=== PATIENT | female | born 1975 | race Caucasian/White ===

== ENCOUNTER 2021-07-17 13:31 | Emergency (ER) | payer MEDICAID, SELFPAY ==
--- NOTE | ~2021-07-17 | CT_ITS ---
EXAMINATION: CT abdomen pelvis w con DATE: 07/17/2021 15:00 INDICATION: Abdominal pain TECHNIQUE: Computed tomography (CT) of the abdomen and pelvis was performed with 100 mL Omnipaque-350 intravenous contrast. Automated exposure control and iterative reconstruction technique were employe d. The dose-length product was 229.58 mGy-cm. COMPARISON: None FINDINGS: Lung bases are clear. A couple small fat-containing Bochdalek hernias at the right posterior sulcus. Visualized inferior heart is normal. No pericardial or pleural effusion. Bilateral breast implants li buddy, gallbladder, spleen, pancreas, bilateral adrenal glands and kidneys are normal. A couple heterog eneously enhancing fibroids, the larger measuring 2.6 similar at the posterior uterine fundus. Bladde r is normal. Bowels including the appendix are normal. No pathologically enlarged abdominal or pelvic lymphadenopathy. Mild lower lumbar levocurvature with mild right-sided disc height loss at L4-L5. IMPRESSION: 1. No acute intra-abdominal/pelvic process. 2. Fibroid uterus. Reviewed, dictated and finalized at location A.
[2021-07-17 13:36] VITALS: BP 158/107; PULSE 100; RESP 15; TEMP 36.7; O2SAT 100
[2021-07-17 14:30] VITALS: BP 177/115; PULSE 93; RESP 14; O2SAT 99
[2021-07-17] MEDS: KETOROLAC 30 MG/ML VIAL (*BKC) IV PUSH (14:36)
[2021-07-17] MEDS: ONDANSETRON INJ 4 MG/2 ML VIAL IV PUSH (14:37)
[2021-07-17] MEDS: SODIUM CHLORIDE 0.9% IV 1,000 ML 999 ML IV CONT (14:37)
[2021-07-17 14:38] LABS: Basophils Absolute Auto 0.1 K/mm3 (0.0-0.1); Basophils Percent Auto 0.5 % (0.2-1.2); Eosinophils Absolute Auto 0.1 K/mm3 (0-0.3); Eosinophils Percent Auto 0.8 % (0-4.4); Hematocrit 39.6 % (37.0-47.0); Hemoglobin 13.1 g/dL (12.0-15.0); Immature Granulocyte Absolute 0.03 K/mm3 (0.00-0.031); Immature Granulocyte Percent A 0.3 % (0-0.5); Lymphocytes Absolute Auto 2.22 K/mm3 (0.9-3.2); Mean Corpuscular HGB Conc 33.1 g/dl (32-36); Mean Corpuscular Hemoglobin 31.5 pg (26-34); Mean Corpuscular Volume 95.2 fl (80-100); Monocytes Absolute Auto 0.7 K/mm3 (0.1-0.6); Monocytes Percent Auto 6.4 % (2.6-8.5); Neutrophils Absolute Auto 7.1 K/mm3 (1.3-6.7); Platelet Count Result 257 k/mm3 (150-375); Red Blood Count 4.16 M/mm3 (4.2-5.4); Red Cell Distribution Width 13.6 % (11.5-14.5); White Blood Count 10.1 K/mm3 (4.5-10.0)
[2021-07-17 14:41] LABS: Add Urine Microscopic? NO; Appearance Urine Clear (Clear); Bilirubin Urine Negative (Negative); Blood Urine Negative (Negative); Color Urine Colorless (Yellow); Glucose Urine UA Negative (Negative); Ketones Urine Negative (Negative); Leukocyte Esterase Ur Negative LEU/UL (Negative); Nitrate Urine Negative (Negative); Protein Urine Negative (Negative); Urobilinogen Urine Negative mg/dL (<2.0)
--- NOTE | 2021-07-17 14:42 | ED.ABDPAIN ---
HPI - Abdominal Pain General Chief Complaint: Abdominal Pain Stated Complaint: ABD Pain Time Seen by Provider: 07/17/21 13:44 Source: RN notes reviewed History of Present Illness HPI narrative: Patient presents emergency department from home for abdominal pain. States symptoms began approximately 1 month ago but have worsened over the past several days. Patient states that pain is located in the upper abdomen described as burning she states is associated with nausea and vomiting is worse after eating she denies any fevers or chills chest pain, shortness of breath diarrhea or any other symptoms states she is been taking Pepcid for the symptoms with minimal relief Related Data Allergies Allergy/AdvReac Type Severity Reaction Status Date / Time No Known Allergies Allergy Verified 07/17/21 13:39 Review of Systems Review of Systems: Gen.: Denies fevers or chills ENT: Denies congestion Respiratory: Denies shortness of breath or cough CV: Denies chest pain or palpitations GI: See HPI denies burning, urgency, frequency or hematuria Musculoskeletal: Denies back pain or muscle pain Neuro: Denies numbness, tingling, weakness or focal weakness Skin: Denies rash Except as documented, all other systems reviewed and negative [facility] Past Medical History Medical History (Updated 07/17/21 @ 16:30 by Ismael Burgos DO) Patient denies significant medical history Social History Social History (Updated 07/17/21 @ 14:43 by Ismael Burgos DO) Tobacco type: e-cigarettes/vaping Exam Narrative: APPEARANCE: No acute distress, nontoxic, resting in bed HEENT: Normocephalic, atraumatic, OMM RESPIRATORY: No respiratory distress, clear to auscultation bilaterally with no rhonchi wheezing or rales CARDIOVASCULAR: RRR s murmur ABDOMINAL: Soft nondistended tender palpation right upper quadrant and left upper quadrant no tenderness right lower quadrant left lower quadrant no rebound or guarding MUSCULOSKELETAl: Moves all extremities. No clubbing, cyanosis or edema. NEURO: Awake and alert. Following commands, speech normal, no focal deficits SKIN:: Warm, dry. Normal Color PSYCHIATRIC: Normal affect/mood Course Course Emergency Course: Went to reevaluate the patient states her abdomen is feeling better at this time she is telling me about how she has had over the past year issues with recurrent scalp infections that she believes are parasitic she states she is seeing several PCPs and been referred to several specialist and is waiting to see dermatology did discuss with her the need to follow-up with dermatology as an outpatient Patient states that they are feeling much better at this time. States abdominal pain has resolved. Repeat abdominal exam shows the patient's abdomen to be soft and nontender. Discussed with patient results of workup and diagnosis. Discussed need for follow-up with primary care physician, reasons to return to the emergency department in proper use of medication. Patient understands and agrees to current treatment plan discussed with patient plans for referral for GI Vital Signs Vital signs: Vital Signs Temperature 98.1 F 07/17/21 13:36 Pulse Rate 100 07/17/21 13:36 Respiratory Rate 15 07/17/21 13:36 Blood Pressure 158/107 H 07/17/21 13:36 Pulse Oximetry 100 07/17/21 13:36 Temperature 98.1 F 07/17/21 13:36 Pulse Rate 100 07/17/21 13:36 Respiratory Rate 15 07/17/21 13:36 Blood Pressure 158/107 H 07/17/21 13:36 Pulse Oximetry 100 07/17/21 13:36 MDM - Abdominal Pain MDM Narrative Medical decision making narrative: Patient's abdomen is soft without significant pain or signs of surgical abdomen on serial exams. Lab and x-ray evaluations are reviewed and patient is felt to be a reasonable candidate for outpatient management. Patient was instructed as to limitations of x-ray and laboratory evaluation and encouraged to return to ED or primary physician for repeat exam in 12 hours if continued o
[2021-07-17 14:50] LABS: Alanine Aminotransferase 43 U/L (4-35); Albumin Level 4.3 g/dL (3.5-5.1); Alkaline Phosphatase 45 U/L (38-126); Anion Gap 5 mmol/L (8-16); Aspartate Amino Transferase 45 U/L (14-36); Bilirubin,Total 0.4 mg/dL (0.2-1.3); Blood Urea Nitrogen 13 mg/dL (7-17); Carbon Dioxide 27 mmol/L (22-30); Chloride 103 mmol/L (98-107); Estimated CRCL calculation 71 ml/min; Estimated Glomerular Filt Rate > 60; Glucose 97 mg/dL (65-110); Lipase 44 U/L (23-300); Potassium 3.4 mmol/L (3.4-5.0); Sodium 135 mmol/L (137-145)
[2021-07-17 14:58] LABS: Specific Grav Ur 1.004 (1.001-1.035)
[2021-07-17 15:30] VITALS: BP 150/111; PULSE 96; RESP 14; O2SAT 99
[2021-07-17 16:30] VITALS: BP 175/122; PULSE 100; RESP 14; O2SAT 99
== END 2021-07-17 16:40 | disposition home or self-care (01) ==
PROVIDERS: Emergency Provider Emergency Medicine
DX: R10.13 Epigastric pain (principal); R11.2 Nausea with vomiting, unspecified; F17.290 Nicotine dependence, other tobacco product, uncomplicated; D25.9 Leiomyoma of uterus, unspecified
CPT/HCPCS: 36415; 74177; 80053; 81003; 81025; 83690; 85025; 96361; 96374; 96375; 99284; J1885; J2405; J7030; Q9967

== ENCOUNTER 2022-07-29 18:50 | Emergency (ER) | payer MEDICAID, SELFPAY ==
[2022-07-29 19:08] VITALS: BP 162/114; PULSE 95; RESP 16; TEMP 36.9; O2SAT 100
--- NOTE | 2022-07-29 22:17 | PC.NURSE ---
Call x 1 at this time for triage with no response from waiting room.
== END 2022-07-29 22:17 | disposition left against medical advice (07) ==
LOC: ANHED 22:50
DX: R11.2 Nausea with vomiting, unspecified (principal)
CPT/HCPCS: 99199

== ENCOUNTER 2023-10-31 17:03 | Emergency (ER) | payer MEDICARE, SELFPAY ==
--- NOTE | ~2023-10-31 | CT_ITS ---
CT of the Abdomen and Pelvis: Indication: Abdominal pain Technique: 2.5 mm axial scans were obtained through the abdomen and pelvis following intravenous adm inistration of 100 cc of Omnipaque 350. Dose reduction technique was used on this scan by utilizing a utomated exposure control and iterative reconstruction technique. The dose-length product (DLP) was 4 11.41 mGy-cm. COMPARISON: 07/17/2021 Findings: Scans through the lung bases are unremarkable. The liver, spleen, pancreas, gallbladder, adrenals and kidneys are within normal limits. No evidence of aortic aneurysm. No lymphadenopathy. No bowel obstruction or bowel wall thickening. There is no evidence to suggest acute appendicitis. Images through the pelvis were performed. Urinary bladder unremarkable. No pelvic mass seen. No ascit es. Impression: No significant abnormalities seen. Reviewed, dictated and finalized at [facility]. AND OILS LOADER Impression: No significant abnormalities seen.
--- NOTE | ~2023-10-31 | CT_ITS ---
Non-contrast Head CT History: Headache Technique: Axial non-contrast imaging of the brain was performed. Dose reduction technique was used on this scan by utilizing automated exposure control and iterative reconstruction technique. The dose -length product (DLP) was 529.67 mGy-cm. Findings: There is no evidence of intracranial hemorrhage, mass lesion, or acute infarct. Brain par enchyma appears normal. The ventricles and subarachnoid spaces are normal in size. The calvarium ap pears normal. The visualized paranasal sinuses and mastoid air cells are clear. Impression: No significant abnormality seen. Reviewed, dictated and finalized at location . NING OFFICER Impression: No significant abnormality seen.
[2023-10-31 17:34] VITALS: BP 92/77; PULSE 62; RESP 20; TEMP 36.2; O2SAT 100
--- NOTE | 2023-10-31 17:38 | ECG_ITS ---
Measurements Intervals [place] Rate: 55 P: 44 CA: 153 QRS: 15 QRSD: 109 T: 20 QT: 422 QTc: 404 Interpretive Statements SINUS BRADYCARDIA WITH SINUS ARRHYTHMIA NO PREVIOUS ECG AVAILABLE FOR COMPARISON Electronically Signed On 11-01-2023 13:22:39 [employer] by Nghia Munoz M.D.
[2023-10-31 17:51] LABS: Basophils Absolute Auto 0.1 K/mm3 (0.0-0.1); Basophils Percent Auto 0.7 % (0.2-1.2); Eosinophils Absolute Auto 0.1 K/mm3 (0-0.3); Eosinophils Percent Auto 1.2 % (0-4.4); Hematocrit 44.6 % (37.0-47.0); Hemoglobin 14.1 g/dL (12.0-15.0); Immature Granulocyte Absolute 0.01 K/mm3 (0.00-0.031); Immature Granulocyte Percent A 0.1 % (0-0.5); Lymphocytes Absolute Auto 2.46 K/mm3 (0.9-3.2); Mean Corpuscular HGB Conc 31.6 g/dl (32-36); Mean Corpuscular Hemoglobin 30.4 pg (26-34); Mean Corpuscular Volume 96.1 fl (80-100); Mean Platelet Volume 9.4 fl (7.4-10.4); Monocytes Absolute Auto 0.6 K/mm3 (0.1-0.6); Monocytes Percent Auto 7.9 % (2.6-8.5); Neutrophils Absolute Auto 4.5 K/mm3 (1.3-6.7); Neutrophils Percent Auto 58.1 % (45.5-73.1); Platelet Count Result 426 k/mm3 (150-375); Red Blood Count 4.64 M/mm3 (4.2-5.4); Red Cell Distribution Width 17.6 % (11.5-14.5); White Blood Count 7.7 K/mm3 (4.5-10.0)
[2023-10-31 18:11] LABS: Alanine Aminotransferase 30 U/L (6-35); Albumin Level 4.5 g/dL (3.5-5.1); Alkaline Phosphatase 91 U/L (38-126); Anion Gap 7 mmol/L (8-16); Aspartate Amino Transferase 40 U/L (14-36); Bilirubin,Total 0.4 mg/dL (0.2-1.3); Blood Urea Nitrogen 10 mg/dL (7-17); Calcium 9.2 mg/dL (8.4-10.2); Carbon Dioxide 27 mmol/L (22-30); Chloride 104 mmol/L (98-107); Estimated CRCL calculation 87 ml/min; Estimated Glomerular Filt Rate > 60; Glucose 109 mg/dL (65-110); Sodium 138 mmol/L (137-145)
[2023-10-31 18:15] LABS: Potassium 4.1 mmol/L (3.4-5.0)
[2023-10-31 19:44] VITALS: BP 128/88; PULSE 60; RESP 18; O2SAT 100
[2023-11-01 00:18] VITALS: PULSE 52; RESP 12; O2SAT 99
[2023-11-01 00:35] VITALS: BP 160/97; PULSE 46; RESP 16; O2SAT 100
[2023-11-01 00:39] VITALS: PULSE 53
[2023-11-01 01:13] LABS: Basophils Percent Auto 0.6 % (0.2-1.2); Eosinophils Absolute Auto 0.1 K/mm3 (0-0.3); Eosinophils Percent Auto 1.8 % (0-4.4); Hematocrit 39.3 % (37.0-47.0); Hemoglobin 12.3 g/dL (12.0-15.0); Immature Granulocyte Absolute 0.02 K/mm3 (0.00-0.031); Immature Granulocyte Percent A 0.3 % (0-0.5); Lymphocytes Absolute Auto 2.37 K/mm3 (0.9-3.2); Lymphocytes Percent Auto 36.3 % (18.3-44.2); Mean Corpuscular HGB Conc 31.3 g/dl (32-36); Mean Corpuscular Hemoglobin 30.1 pg (26-34); Mean Corpuscular Volume 96.1 fl (80-100); Mean Platelet Volume 9.4 fl (7.4-10.4); Monocytes Absolute Auto 0.7 K/mm3 (0.1-0.6); Monocytes Percent Auto 10.1 % (2.6-8.5); Neutrophils Absolute Auto 3.3 K/mm3 (1.3-6.7); Neutrophils Percent Auto 50.9 % (45.5-73.1); Platelet Count Result 387 k/mm3 (150-375); Red Blood Count 4.09 M/mm3 (4.2-5.4); Red Cell Distribution Width 17.3 % (11.5-14.5); White Blood Count 6.5 K/mm3 (4.5-10.0)
[2023-11-01 01:21] LABS: Lactic Acid Reflex 0.9 mmol/L (0.7-2.0)
[2023-11-01 01:22] LABS: Alanine Aminotransferase 27 U/L (6-35); Albumin Level 4.1 g/dL (3.5-5.1); Alkaline Phosphatase 83 U/L (38-126); Anion Gap 4 mmol/L (8-16); Aspartate Amino Transferase 38 U/L (14-36); Bilirubin,Total 0.4 mg/dL (0.2-1.3); Blood Urea Nitrogen 8 mg/dL (7-17); Calcium 9.1 mg/dL (8.4-10.2); Carbon Dioxide 29 mmol/L (22-30); Chloride 103 mmol/L (98-107); Estimated CRCL calculation 87 ml/min; Estimated Glomerular Filt Rate > 60; Glucose 95 mg/dL (65-110); Lipase 49 U/L (23-300); Magnesium 2.2 mg/dL (1.6-2.3); Potassium 4.3 mmol/L (3.4-5.0); Sodium 136 mmol/L (137-145)
[2023-11-01 01:23] LABS: Appearance Urine Cloudy (Clear); Bacteria Urine None Seen /hpf; Bilirubin Urine Negative (Negative); Blood Urine Negative (Negative); Color Urine Yellow (Yellow); Glucose Urine UA Negative (Negative); Ketones Urine Negative (Negative); Leukocyte Esterase Ur Negative LEU/UL (Negative); Nitrate Urine Negative (Negative); Non Pathogenic Casts 0-2; Protein Urine Negative (Negative); RBC Urine 0-2 /hpf (0-2); Specific Grav Ur 1.017 (1.001-1.035); Squamous Epithelial Cell Urine None seen /hpf (Few); Urobilinogen Urine 0.2 mg/dL (<2.0); WBC Urine 0-5 /hpf; pH Urine 8.5 (5.0-9.0)
[2023-11-01 01:44] VITALS: PULSE 54; RESP 12; O2SAT 100
[2023-11-01 01:44] LABS: Add Urine Microscopic? YES
--- NOTE | 2023-11-01 02:03 | ED.GENADULT ---
HPI - General Adult General Chief complaint: Syncope Stated complaint: multiple complaints Time Seen by Provider: 11/01/23 00:31 History of Present Illness HPI narrative: patient is a 48-year-old female who presents emergency department with chief complaint of multiple complaints. Patient reports that she has had multiple scaly lesions on her scalp and also over her body patient also reports he has been vomiting stuff and reports that she has been seen by Dermatology that recommended that she be seen by another service and reports that she is currently in between providers. The patient states that she has draining wounds from her scalp and reports that they are not improved by anything. Related Data Allergies Allergy/AdvReac Type Severity Reaction Status Date / Time No Known Allergies Allergy Verified 07/29/22 19:14 Review of Systems Review of Systems: A 10 system review of systems was completed on the patient and is negative except for what is stated in the HPI. Nursing and ancillary documentation was reviewed. PMFSH Past Medical History Medical History Patient denies significant medical history Social History Social History Tobacco type: e-cigarettes/vaping Exam Narrative: GENERAL: Well-appearing, well-nourished, and in no acute distress. HEAD: Normocephalic, atraumatic. EYES: PERRLA and EOMI. ENT: Nares clear, no rhinorrhea or epistaxis. Mucous membranes moist. NECK: Supple. CHEST: Clear to auscultation. No respiratory distress. HEART: Regular rate and rhythm. No murmur heard. Normal peripheral pulses. ABDOMEN: Soft, nontender, nondistended, normal active bowel sounds. EXTREMITIES: Normal range of motion. No edema. SKIN: Warm, dry, Multiple lesions over the skin NEURO: No focal deficits. Alert and oriented x3. PSYCH: Normal mood and affect. Course Vital Signs Vital signs: Vital Signs Temperature 36.2 C L 10/31/23 17:34 Pulse Rate 62 10/31/23 17:34 Respiratory Rate 20 10/31/23 17:34 Blood Pressure 92/77 L 10/31/23 17:34 Pulse Oximetry 100 10/31/23 17:34 Oxygen Delivery Room Air 10/31/23 17:34 Temperature 36.2 C L 10/31/23 17:34 Pulse Rate 54 L 11/01/23 01:44 Respiratory Rate 12 11/01/23 01:44 Blood Pressure 160/97 H 11/01/23 00:35 Pulse Oximetry 100 11/01/23 01:44 Oxygen Delivery Room Air 10/31/23 17:34 Medical Decision Making Vital Signs Vital Signs: Vital Signs Temperature 36.2 C L 10/31/23 17:34 Pulse Rate 62 10/31/23 17:34 Respiratory Rate 20 10/31/23 17:34 Blood Pressure 92/77 L 10/31/23 17:34 Pulse Oximetry 100 10/31/23 17:34 Oxygen Delivery Room Air 10/31/23 17:34 Temperature 36.2 C L 10/31/23 17:34 Pulse Rate 54 L 11/01/23 01:44 Respiratory Rate 12 11/01/23 01:44 Blood Pressure 160/97 H 11/01/23 00:35 Pulse Oximetry 100 11/01/23 01:44 Oxygen Delivery Room Air 10/31/23 17:34 Lab Data 11/01/23 01:06 11/01/23 01:06 Labs: Lab Results 10/31/23 11/01/23 11/01/23 Range/Units 17:46 01:06 01:12 WBC 7.7 6.5 (4.5-10.0) K/mm3 RBC 4.64 4.09 L (4.2-5.4) M/mm3 Hgb 14.1 12.3 (12.0-15.0) g/dL Hct 44.6 39.3 (37.0-47.0) % MCV 96.1 96.1 (80-100) fl MCH 30.4 30.1 (26-34) pg MCHC 31.6 L 31.3 L (32-36) g/dl RDW 17.6 H 17.3 H (11.5-14.5) % Plt Count 426 H D 387 H (150-375) k/mm3 MPV 9.4 9.4 (7.4-10.4) fl Immature Gran % (Auto) 0.1 0.3 (0-0.5) % Neut % (Auto) 58.1 50.9 (45.5-73.1) % Lymph % (Auto) 32.0 36.3 (18.3-44.2) % [place] % (Auto) 7.9 10.1 H (2.6-8.5) % Eos % (Auto) 1.2 1.8 (0-4.4) % Baso % (Auto) 0.7 0.6 (0.2-1.2) % Lymph # (Auto) 2.46 2.37 (0.9-3.2) K/mm3 [place] # (Auto) 0.6 0.7 H (0.1-0.6) K/mm3 Eos # (Auto) 0.1 0.1 (0-0.3) K/mm3 Baso # (A
[2023-11-01 02:26] LABS: Amphetamine Screen Urine Negative (Negative); Barbiturate Screen Urine Positive (Negative); Benzodiazepines Screen Urine Positive (Negative); Cannabinoid Screen Urine Positive (Negative); Cocaine Screen Urine Negative (Negative); Methadone Screen Urine Negative (Negative); Opiate Screen Urine Negative (Negative); Phencyclidine Screen Urine Negative (Negative)
[2023-11-01 03:24] VITALS: BP 134/82; PULSE 54; RESP 16; O2SAT 99
== END 2023-11-01 03:33 | disposition home or self-care (01) ==
PROVIDERS: Emergency Medicine; Emergency Provider Emergency Medicine
DX: L30.9 Dermatitis, unspecified (principal); R11.2 Nausea with vomiting, unspecified; Z79.899 Other long term (current) drug therapy
CPT/HCPCS: 36415; 70450; 74177; 80053; 80307; 81001; 83605; 83690; 83735; 85025; 93005; 99284; Q9967

== ENCOUNTER 2025-03-26 15:41 | Emergency (ER) | payer MEDICARE, SELFPAY ==
--- NOTE | ~2025-03-26 | CT_ITS ---
EXAMINATION: CT brain wo con DATE: 03/26/2025 19:10 INDICATION: headache, worsening . TECHNIQUE: Computed tomography (CT) of the head was performed without intravenous contrast. The mA wa s adjusted according to patient size. Iterative reconstruction technique was employed. The dose-lengt h product was 605.33 mGy-cm. COMPARISON: 11/01/2023. FINDINGS: Motion artifact is present, particularly at the level of the skull base. No acute intracranial hemorrhage or extra-axial fluid collection. No hydrocephalus, mass, or herniation. No acute ischemic infarct. Unremarkable dural venous sinus attenuation. No acute osseous abnormality. The aerated spaces are clear. IMPRESSION: Mildly motion limited examination. Within that constraint, no acute intracranial process is detected. Reviewed, dictated and finalized at location K. IMPRESSION: Mildly motion limited examination. Within that constraint, no acute intracrania l process is detected.
--- NOTE | ~2025-03-26 | XR_ITS ---
EXAMINATION: XR chest 1V portable Exam Date/Time: 03/26/2025 17:27 CDT HISTORY: pre-syncope, gi symptoms, parasite symptoms Comparison: None. RESULT: Lines, tubes, and devices: Bilateral breast implants. Mediastinum. Lungs and pleura: Clear. Slight rightward rotation. Cardiomediastinal silhouette: Unremarkable. Other: No acute osseous or upper abdominal finding. IMPRESSION: No acute cardiopulmonary process. Reviewed, dictated and finalized at location K.
[2025-03-26 15:46] VITALS: BP 199/109; PULSE 96; RESP 18; TEMP 36.2; O2SAT 100
--- OUTSIDE RECORDS SUMMARY | 2025-03-26 15:48 | XMS_ITS | Referral Summary ---
Author Organization [address] Address [address] [place] [id number] Care Team Providers Care Mine Expert Name Role Phone Claudia Graham DO Primary Care Provider [phone] Allergies Active Allergy Reactions Criticality Noted Date Comments House Dust Sneezing Low 03/07/2023 Mold Extracts Unknown 03/07/2023 Medications lisinopriL (PRINIVIL,ZESTRIL) 10 mg tabletIndications: hypertension Take 1 tablet (10 mg total) by mouth cap inspector before breakfast 01/15/20 18 Active Lo Loestrin Fe 1 mg-10 mcg (24)/10 mcg (2) tabletIndications: Contraception Take 1 tablet by mouth cap inspector before breakfast 10/31/20 20 Active omeprazole (PriLOSEC) 40 mg capsuleIndications :Treatment of Non-Bleeding Gastric Disorder Take 1 capsule (40 mg total) by mouth cap inspector before breakfast 08/21/20 21 Active metroNIDAZOLE (METROCREAM) 0.75 % creamIndications:A cne Rosacea Apply to face once daily 45 g 11 12/14/19 22 Active valACYclovir (VALTREX) 500 mg tabletIndications: HSV infection Take 1 tablet (500 mg total) by mouth daily 30 tablet 2 12/14/19 22 Active Additional Information Patient taking differently:500 mg oralDaily (early AM), Indications: Prophylaxis, Medical, Informant: Self, Reported on 03/07/2023 famotidine (PEPCID) 20 mg tablet Take 1 tablet (20 mg total) by mouth 2 (two) times a day as needed for heartburn or indigestion 12/25/19 Active erythromycin with ethanoL (EMGEL) 2 % gel Apply topically 2 (two) times a day as needed (for acne and sores) 30 g 2 02/02/20 22 Active gabapentin (NEURONTIN) 300 mg capsuleIndications :Dysesthesia of scalp Take 3 capsules (900 mg total) by mouth 3 (three) times a day 270 capsule 2 02/02/20 22 Active Additional Information Patient taking differently:900 mg oral 3 times daily,Indications: Neuropathic Pain, Reported on 03/07/2023 ivermectin 1 % cream APPLY TO AFFECTED AREA ON SCALP ONCE DAILY 06/04/20 22 Active amphetamine sulfate 20 mg tablet,disintegrat ingIndications:Att ention-Deficit Hyperactivity Disorder Take 20 mg by mouth 3 (three) times a day Active metoprolol XL (TOPROL-XL) 25 mg extended release tablet Take 1 tablet (25 mg total) by mouth daily 08/25/20 22 Active butalbital-acetami nophen-caffeine (ESGIC) 50-325-40 mg per tabletIndications: Migraine Take 1 tablet by mouth every 4 (four) hours as needed for migraine or headaches 08/04/20 22 Active escitalopram (LEXAPRO) 10 mg tabletIndications: Anxiety with Depression Take 1 tablet (10 mg total) by mouth nightly 08/20/20 Active mupirocin (BACTROBAN) 2 % ointment APPLY TOPICALLY TO THE AFFECTED AREA DAILY 30 g 6 10/08/20 22 Active hydrOXYzine (ATARAX) 25 mg tabletIndications: Dysesthesia of scalp Take 1 tablet (25 mg total) by mouth 3 (three) times a day 90 tablet 2 10/06/20 Active Additional Information Patient taking differently:25 mg oral 3 times daily,Indications: Urticaria, anxiety, Informant: Self, Reported on 03/07/2023 ketoconazole (NIZORAL) 2 % shampoo Apply topically daily To wash scalp and ears, then rinse 120 mL 11 02/10/20 23 Active buprenorphine-nalo xone (SUBOXONE) 8-[address] under the tongue 2 (two) times a day 01/20/20 23 Active clobetasoL (CLOBEX) 0.05 % shampoo Apply topically 2 (two) times a week 12/27/19 Active acetaminophen (TYLENOL) 500 mg tablet Take 1 tablet (500 mg total) by mouth every 6 (six) hours as needed for pain 30 tablet 03/17/20 23 Active ibuprofen (ADVIL,MOTRIN) 600 mg tablet Take 1 tablet (600 mg total) by mouth every 6 (six) hours as needed for pain 30 tablet 03/17/20 23 Active cyclobenzaprine (FLEXERIL) 5 mg tablet Take 1 tablet (5 mg total) by mouth 3 (three) times a day as needed for muscle spasms 30 tablet 03/17/20 23 Active oxyCODONE (ROXICODONE) 5 mg immediate release tabletIndications: Pain Take 1 tablet (5 mg total) by mouth every 4 (four) hours as needed for pain 8 tablet 03/17/20 23 Active ondansetron ODT (ZOFRAN-ODT) 4 mg disintegrating tablet Take 1 tablet (4 mg total) by mouth every 8 (eight) hours as needed for nausea or vomiting 20 tablet 03/17/20 23 Active senna-docusate (PERICOLACE) 8.6-50 mg Take 1 tablet by mouth daily as needed for constipation 10 tablet 03/17/20 23 Active ivermectin 1 % creamIndications:A cne Rosacea Apply 1 Application topically daily 45 g 11 05/17/20 Active Active Problems Problem Noted Date Diagnosed Date Mass of buttock 02/23/2023 Overview (02/23/2023): Added automatically from request for surgery [id number] Blurred vision, bilateral 09/07/2022 Bilateral retinal lattice degeneration Assessment & Plan (07/06/2022 10:40 AM CDT): She fortunately does not have any retinal tears in either eye. The lattice degeneration was related to the myopia and she does have a refractive error. Dry eye syndrome of both eyes 07/06/2022 Assessment & Plan (07/06/2022 10:41 AM CDT): She has a dermatologic condition of the scalp characterized by skin lesions as well as hair loss. Is being evaluated by dermatology. She reports that lately she has been noticing a lot of irritation and tearing from both eyes. On examination today, there are few punctate epithelial erosions on the ocular surface but no evidence of active inflammation of conjunctiva. It is possible that this could be related to her rheumatologic disorder and will be beneficial for her to be evaluated by Cornea and external Disease. Abdominal bloating 09/28/2021 Heartburn 09/28/2021 Abnormal bowel movement 03/16/2021 Anxiety 03/16/2021 Chronic fatigue 03/16/2021 Confusion 03/16/2021 Dysuria 03/16/2021 Family history of thyroid disease 03/16/2021 Pain of joint of both hands 03/16/2021 Plaque psoriasis 03/16/2021 Encounter for screening mamm ogram for malignant neoplasm of breast 03/16/2021 Urinary frequency 03/16/2021 Vitamin D deficiency 03/16/2021 Neurotic excoriations 06/30/2020 Other pruritus 06/30/2020 Secondary infection of skin 06/30/2020 Body mass index (BMI) 19.9 or less, adult 2019 Body mass index (BMI) 20.0-20.9, adult 0 Endometriosis 02/20/2018 Irritable bowel syndrome 02/20/2018 Mixed anxiety and depressive disorder 02/20/2018 Adult attention deficit hyperactivity disorder 0 02/20/2018 Alcohol abuse 01/12/2018 Elevated LFTs 01/12/2018 Elevated serum creatinine 01/12/2018 HTN (hypertension), benign 01/12/2018 Severe episode of recurrent major depressive disorder, without psychotic features 01/12/2018 Social History Tobacco Use Types Packs/Day Years Used Date Smoking Tobacco: Every Day Vaping Smokeless Tobacco: Never Tobacco Cessation:Ready to Q uit: Yes; Counseling Given: No Alcohol Use Standard Drinks/Week Comments Yes 0 (1 standard drink = 0.6 oz pur e alcohol) sometimes AUDIT-C Answer Date Recorded Q1: How often do you have a drink containing alc ohol? 2-4 times a month 03/17/2023 Q2: How many drinks containi ng alcohol do you have on a typical day when you are drinking? 3 or 4 03/17/2023 Q3: How often do you have si x or more drinks on one occasion? Never 03/17/2023 Personal Safety Answer Date Recorded Have you ever been in or are you currently in a harmful physical or emotional relationship or is someone making you feel afraid or unsafe? Denies 04/23/2024 Comments No Sex and Gender Information Value Date Recorded Sex Assigned at Not on file Legal Sex Female 8:31 AM CDT Gender Identity Not on file Sexual Orientation Not on file Last Filed Vital Signs Vital Sign Reading Time Taken Comments Blood Pressure 165/115 04/23/2024 9:56 PM CDT Pulse 68 04/23/2024 9:56 PM CDT Temperature 37.1 C (98.7 F) 04/23/2024 9:56 PM CDT Respiratory Rate 20 04/23/2024 9:56 PM CDT Oxygen Saturation 100% 04/23/2024 9:56 PM CDT Inhaled Oxygen Concentration - - Weight 59 kg (130 lb) 03/07/2023 10:40 AM CDT Height 165.1 cm (5' 5 ) 03/07/2023 10:40 AM CDT Body Mass Index 21.63 03/07/2023 10:40 AM CDT Plan of Treatment Not on file Procedures Procedure Name Priority Date/Time Associated Diagnosis Comments SCREENING MAMMOGRAM BILATERAL W ALFONZO W IMPLANTS Schedule Routine, Read Routine (OP Routine) 09/15/2022 4:26 PM CDT Screening mammogram, encounter for HEPATITIS C ANTIBODY Routine 12/18/2020 5:21 PM JEWELRY DESIGNER Pruritus from Last 3 Months or Most Recently Relevant to Health Maintenance Results * (ABNORMAL) Screening Mammogram Bilateral W Alfonzo W Implants (09/15/2022 4:26 PM CDT) Anatomical Region Laterality Modality Breast Bilateral Mammography Narrative 09/16/2022 9:36 AM CDT Examination: Screening Mammogram Bilateral W Alfonzo W Implants: 09/15/22 Clinical: Screening mammogram, encounter for. Prior Study Comparisons: Comparison was made to the prior available relevant studies at the time of interpretation. Findings: Screening Mammogram Bilateral W Alfonzo W Implants Right 1) Mass: There is an oval mass with microlobulated margins seen in the right breast at 8 o'clock in the posterior depth. This is a new finding. This finding needs additional imaging evaluation. Left No significant masses, malignant type calcifications, skin thickening, nipple retraction, or significant lymphadenopathy is noted in this breast. The CAD review showed no significant findings. The breasts are heterogeneously dense, which may obscure small masses. There are bilateral subpectoral implants. The patient will be notified of results by letter. Impression: BI-RADS ATLAS category (right): 0 - Incomplete: Needs Additional Imaging Evaluation Overall Assessment: 0 - Incomplete: Needs Additional Imaging Evaluation Recommendation: - Ultrasound with possible additional views for the right breast. us Self Screening Mammogram IMG MAMMO PROCEDURES Fi nal Result * Hepatitis C antibody (12/18/2020 5:21 PM JEWELRY DESIGNER) Hep C Ab NON-REACTI VE NON-REACT JUAN JOSE [facility] SIGNAL TO CUT-OFF 0.01 <1.00 [facility] Comment: HCV antibody was non-reactive. There is no laboratory evidence of HCV infection. In most cases, no further action is required. However, if recent HCV exposure is suspected, a test for HCV RNA (test code 52998) is suggested. For additional information please refer to http://education.[place]/faq/EBH65w8 (This link is being provided for informational/ educational purposes only.) Blood specimen (specimen) 12/18/2020 5:21 PM JEWELRY DESIGNER 12/18/2020 5:22 PM JEWELRY DESIGNER us Isabel Medina MD LAB MICROBIOLOGY - GENERAL ORDERABLES Final Result [facility] [id number] [address] [facility] [place] [phone] from Last 3 Months or Most Recently Relevant to Health Maintenance Insurance [facility] CHOICE PLUS [facility] MEDICARE Care Teams Mine Expert Relationship Specialty Start Date End Date Claudia Graham DO [address] [place] [address] [place] [id number] PCP - General Family Medicine 03/02/24
--- OUTSIDE RECORDS SUMMARY | 2025-03-26 15:48 | XMS_ITS | Clinical Summary ---
Author Organization [facility] Address [address] [place] [id number] Care Team Providers Care Architectural Inspector Name Role Phone None, Provider MD Primary Care Provider Unavaila ble Medications No known medications Social History Tobacco Use Types Packs/Day Years Used Date Smoking Tobacco: Former Cigarettes Smokeless Tobacco: Never Tobacco Cessation:Counseling Given: Yes Alcohol Use Standard Drinks/Week Comments Yes 0 (1 standard drink = 0.6 oz pur e alcohol) Comments Unknown Sex and Gender Information Value Date Recorded Sex Assigned at Not on file Legal Sex Female 2:09 PM CDT Gender Identity Not on file Sexual Orientation Not on file Last Filed Vital Signs Vital Sign Reading Time Taken Comments Blood Pressure 155/97 09/05/2024 2:13 PM CDT Pulse 83 09/05/2024 2:13 PM CDT Temperature 36.1 C (97 F) 09/05/2024 2:13 PM CDT Respiratory Rate 18 09/05/2024 2:13 PM CDT Oxygen Saturation 98% 09/05/2024 2:13 PM CDT Inhaled Oxygen Concentration - - Weight 58.6 kg (129 lb 3 oz) 09/05/2024 2:13 PM CDT Height 165.1 cm (5' 5 ) 09/05/2024 2:13 PM CDT Body Mass Index 21.5 09/05/2024 2:13 PM CDT Plan of Treatment Health Maintenance Due Date Last Done Comments Colorectal Cancer Screening Colonoscopy (10 Years) 1974 Annual Physical 1977 Hepatitis C 1992 DTaP, Tdap and Td Vaccines ( 1 - Tdap) 1993 Hepatitis B Vaccines (1 of 3 - 19+ 3-dose series) 1993 COVID-19 Vaccine (2023-2 5 season) 2024 11/14/2020 Pneumococcal Vaccine: 50+ Years (1 of 1 - PCV) 2024 Zoster Vaccines (1 of 2) 2024 Mammogram Screening 11/29/2024 11/29/2022, 09/15/2022 Meningococcal B Vaccine Aged Out No l onger eligible based on patient's age to complete this topic Meningococcal Vaccine Aged Out No bryon sarah eligible based on patient's age to complete this topic RSV Immunizations Under 20 Months Aged Out No longer eligible b ased on patient's age to complete this topic Insurance MEDICARE Care Teams Architectural Inspector Relationship Specialty Start Date End Date None, Provider, PCP - General UNKNOWN PHYSICIAN SPECIALTY 09/05/24
--- OUTSIDE RECORDS SUMMARY | 2025-03-26 15:48 | XMS_ITS | Clinical Summary ---
Author Organization [address] Address [address] [place] [id number] Care Team Providers Care Shortage Worker Name Role Phone Claudia Graham DO Primary Care Provider [phone]- [phone] Allergies Active Allergy Reactions Criticality Noted Date Comments House Dust Sneezing Low 03/07/2023 Mold Extracts Unknown 03/07/2023 Medications lisinopriL (PRINIVIL,ZESTRIL) 10 mg tabletIndications: hypertension Take 1 tablet (10 mg total) by mouth early childhood teacher assistant before breakfast 01/15/20 18 Active Lo Loestrin Fe 1 mg-10 mcg (24)/10 mcg (2) tabletIndications: Contraception Take 1 tablet by mouth early childhood teacher assistant before breakfast 10/31/20 20 Active omeprazole (PriLOSEC) 40 mg capsuleIndications :Treatment of Non-Bleeding Gastric Disorder Take 1 capsule (40 mg total) by mouth early childhood teacher assistant before breakfast 08/21/20 21 Active metroNIDAZOLE (METROCREAM) [...] (02/23/2023): Added automatically from request for surgery [id number] Blurred vision, bilateral 09/07/2022 Bilateral retinal lattice [...] major depressive disorder, without psychotic features 01/12/2018 Surgical History Surgery Date Site/Laterality Comments BREAST SURGERY 11/14/2016 - 11/13/2017 DILATION AND CURETTAGE OF UTERUS 11/14/2012 - 11/13/2013 Medical History Medical History Date Comments ADHD (attention deficit hyperactivity disorder) Addiction to drug (HCC) Anxiety Depression Hypertension Migraines Urinary tract infection Family History Medical History Relation Name Comments Cancer Father Glaucoma Father Arthritis Mother Cancer Mother Glaucoma Mother Hypertension Mother Macular degeneration Mother Mental illness Mother Glaucoma Paternal Grandmother Clotting disorder Sister Diabetes Sister Mental illness Sister Seizures Sister Stroke Sister Anesthesia problems Neg Hx Retinal detachment Neg Hx Relation Name Status Comments Father Mother Paternal Grandmother Sister Social History Tobacco Use Types Packs/Day Years [...] on file Sexual Orientation Not on file Obstetrics History Last Filed Vital Signs Vital Sign Reading [...] 03/07/2023 10:40 AM CDT Plan of Treatment Health Maintenance Due Date Last Done Comments Cervical Cancer Screening 1974 Colon Cancer Screening-Colonoscopy 1974 Depression Screening 1974 DTaP/Tdap/Td Vaccine (1 - Tdap) 1985 Hepatitis B Screening 1992 Regular Well Visit/Exam 18-64 1992 Pneumococcal vaccine <65 (1 of 2 - PCV) 1993 Breast Cancer Screening-Mammogram 09/15/2023 022 Covid-19 Vaccine ( season) 07/15/202412/2020, 03/18/2021 Influenza Vaccine (#1) 2024 Zoster Vaccine (1 of 2) 2024 Hepatitis C Screening Completed 12/18/2020 Procedures Procedure Name Priority Date/Time Associated Diagnosis Comments SCREENING MAMMOGRAM BILATERAL W ALFONZO W IMPLANTS Schedule Routine, Read Routine (OP Routine) 09/15/2022 4:26 PM CDT Screening mammogram, encounter for HEPATITIS C ANTIBODY Routine 12/18/2020 5:21 PM RN CASE MANAGEMENT Pruritus from Last 3 Months or Most [...] * Hepatitis C antibody (12/18/2020 5:21 PM RN CASE MANAGEMENT) Hep C Ab NON-REACTI VE NON-REACT JUAN JOSE [facility] SIGNAL TO CUT-OFF 0.01 <1.00 [facility] Comment: HCV antibody was non-reactive. There is no laboratory evidence of HCV infection. In most cases, no further action is required. However, if recent HCV exposure is suspected, a test for HCV RNA (test code 63105) is suggested. For additional information please refer to [email or web address] (This link is being provided for informational/ educational purposes only.) Blood specimen (specimen) 12/18/2020 5:21 PM RN CASE MANAGEMENT 12/18/2020 5:22 PM RN CASE MANAGEMENT Isabel Medina MD LAB MICROBIOLOGY - GENERAL ORDERABLES Final Result [facility] [address] [place] [phone] from Last 3 Months or Most Recently Relevant to Health Maintenance Insurance [facility] CHOICE PLUS [facility] HMO/PPO Address: [address] [address] [place] [address] [facility] MEDIC[facility] Care Teams Shortage Worker Relationship Specialty Start Date End Date Claudia Graham, [address] [id number] PCP - General Family Medicine 03/02/24
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
--- NOTE | 2025-03-26 15:59 | ECG_ITS ---
Test Date: 2025-03-26 17:25:12 Measurements Intervals [place] Rate: 89 P: 57 SC: 149 QRS: 20 QRSD: 105 T: 59 QT: 385 QTc: 469 Interpretive Statements SINUS RHYTHM No previous ECG available for comparison Electronically Signed On 03-27-2025 11:48:39 CDT by Nghia Munoz M.D.
--- NOTE | 2025-03-26 16:01 | ED_ITS ---
HPI - Nausea/Vomiting/Diarrhea General Chief complaint: Nausea/Vomiting/Diarrhea <Kaia Gruber PA-C - Last Filed: 03/26/25 16:05> Stated complaint: scalp wounds <Kaia Gruber PA-C - Last Filed: 03/26/25 16:05> Time Seen by Provider: 03/26/25 17:55 <Kaia Gruber PA-C - Last Filed: 03/26/25 16:05> Focused HPI: 49-year-old female presents emergency department for multiple medical complaints. Patient states she has had wounds to her scalp for several years. Has seen been seen by multiple dermatologists and facilities but reportedly does not gotten any answers. She states someone at 1 point told her that she had a multi parasitic infection and has been treating her with topical creams but they did not document this in the chart. She states she resents today because she has had nausea, vomiting and diarrhea. States she sees black specks in her urine and her urine is malodorous and “foamy”. She states she vomits about 3 times a week which is not abnormal for her, however today her vomiting has increased. She states today when she woke up she felt like she was going to pass out and this is what prompted her to come to the ED. She notes that her lightheadedness and dizziness is worse when she goes from sitting to standing position. Patient admits to marijuana use and states she recently ran out of her Xanax and is looking for a new PCP to refill this prescription. She states she feels like everyone keeps “passing her off”. GENERAL: Anxious appearing, tremulous, tearful HEAD: Normocephalic, atraumatic. Several wounds to the scalp of various healing stages. Hair is shaved CHEST: Clear to auscultation. No respiratory distress. HEART: Regular rate and rhythm. SKIN: Several wounds here to the BUE of appears healing stages, small areas of scarring to upper extremities NEURO: Alert and oriented x3. Patient screened in triage and initial orders placed. Additional care and disposition to be based upon diagnostic testing and treatment. <Kaia Gruber PA-C - Last Filed: 03/26/25 16:05> History of Present Illness HPI Narrative: Patient 49-year-old female presents emergency department with wounds over her body and reports that she feels as though there are bugs crawling underneath her skin. Patient states her urine has been following and malodorous patient states she has had sepsis in vomiting reports that she has also been very anxious and currently does not have a intact piece a <Eugenio Rachel MD - Last Filed: 03/26/25 20:17> Related Data Allergies/Adverse reactions: Allergies Allergy/AdvReac Type Severity Reaction Status Date / Time No Known Allergies Allergy Verified 07/29/22 19:14 <Kaia Gruber PA-C - Last Filed: 03/26/25 16:05> Review of Systems 2 Review of Systems: A 10 system review of systems was completed on the patient and is negative except for what is stated in the HPI. Nursing and ancillary documentation was reviewed. <Eugenio Rachel MD - Last Filed: 03/26/25 20:17> PMFSH Past Medical History Medical History: Medical History Patient denies significant medical history <Kaia Gruber PA-C - Last Filed: 03/26/25 16:05> Social History Social History: Social History Tobacco type: e-cigarettes/vaping <Kaia Gruber PA-C - Last Filed: 03/26/25 16:05> Exam 2 Narrative: GENERAL: Well-appearing, well-nourished, and in no acute distress. HEAD: Normocephalic, atraumatic. EYES: PERRLA and EOMI. ENT: Nares clear, no rhinorrhea or epistaxis. Mucous membranes moist. NECK: Supple. CHEST: Clear to auscultation. No respiratory distress. HEART: Regular rate and rhythm. No murmur heard. Normal peripheral pulses. ABDOMEN: Soft, nontender, nondistended, normal active bowel sounds. EXTREMITIES: Normal range of motion. No edema. SKIN: Warm, dry, multiple areas of wounds on both the scalp and the extremities NEURO: No focal deficits. Alert and oriented x3. PSYCH: Normal mood and affect. <Eugenio Rachel MD - Last Filed: 03/26/25 20:17> Course Vital Signs Vital signs: Vital Signs Temperature 36.2 C L 03/26/25 15:46 Pulse Rate 96 03/26/25 15:46 Respiratory Rate 18 03/26/25 15:46 Blood Pressure 199/109 H 03/26/25 15:46 Pulse Oximetry 100 03/26/25 15:46 Oxygen Delivery Room Air 03/26/25 15:46 Temperature 36.2 C L 03/26/25 15:46 Pulse Rate 90 03/26/25 18:30 Respiratory Rate 19 03/26/25 18:30 Blood Pressure 175/93 H 03/26/25 18:30 Pulse Oximetry 100 03/26/25 18:30 Oxygen Delivery Room Air 03/26/25 15:46 <Kaia Gruber PA-C - Last Filed: 03/26/25 16:05> Vital Signs Temperature 36.2 C L 03/26/25 15:46 Pulse Rate 96 03/26/25 15:46 Respiratory Rate 18 03/26/25 15:46 Blood Pressure 199/109 H 03/26/25 15:46 Pulse Oximetry 100 03/26/25 15:46 Oxygen Delivery Room Air 03/26/25 15:46 Temperature 36.2 C L 03/26/25 15:46 Pulse Rate 90 03/26/25 18:30 Respiratory Rate 19 03/26/25 18:30 Blood Pressure 175/93 H 03/26/25 18:30 Pulse Oximetry 100 03/26/25 18:30 Oxygen Delivery Room Air 03/26/25 15:46 <Eugenio Rachel MD - Last Filed: 03/26/25 20:17> MDM - Nausea/Vomiting/Diarrhea Lab Data Result diagrams: 03/26/25 16:53 03/26/25 16:53 <KRIS Marin Last Filed: 03/26/25 16:05> Labs: Lab Results 03/26/25 03/26/25 Range/Units 16:45 16:53 WBC 10.4 H (4.5-10.0) K/mm3 RBC 3.97 L (4.2-5.4) M/mm3 Hgb 13.0 (12.0-15.0) g/dL Hct 39.5 (37.0-47.0) % MCV 99.5 (80-100) fl MCH 32.7 (26-34) pg MCHC 32.9 (32-36) g/dl RDW 14.4 (11.5-14.5) % Plt Count 271 (150-375) k/mm3 MPV 10.0 (7.4-10.4) fl Immature Gran % (Auto) 0.3 (0-0.5) % Neut % (Auto) 50.8 (45.5-73.1) % Lymph % (Auto) 28.1 (18.3-44.2) % [place] % (Auto) 7.2 (2.6-8.5) % Eos % (Auto) 12.8 H (0-4.4) % Baso % (Auto) 0.8 (0.2-1.2) % Lymph # (Auto) 2.92 (0.9-3.2) K/mm3 [place] # (Auto) 0.8 H (0.1-0.6) K/mm3 Eos # (Auto) 1.3 H (0-0.3) K/mm3 Baso # (Auto) 0.1 (0.0-0.1) K/mm3 Abs Immat Gran (auto) 0.03 (0.00-0.031) K/mm3 Absolute Neuts (auto) 5.3 (1.3-6.7) K/mm3 Absolute Nucleated RBC 0.000 (0.0-0.012) K/mm3 Nucleated RBC % 0.0 (0.0-0.2) % PT 12.4 (11.1-14.7) Seconds INR 0.9 APTT 27.6 (22.3-36.8) Seconds Sodium 139 (137-145) mmol/L Potassium 3.2 L (3.4-5.0) mmol/L Chloride 99 (98-107) mmol/L Carbon Dioxide 30 (22-30) mmol/L Anion Gap 10 (4-12) mmol/L BUN 14 D (7-17) mg/dL Creatinine 0.81 (0.7-1.0) mg/dL Estim Creat Clear Calc 65 ml/min Estimated GFR > 60 (59 - ) Glucose 82 (65-110) mg/dL Calcium 9.5 (8.4-10.2) mg/dL Magnesium 1.7 (1.6-2.3) mg/dL Total Bilirubin 0.3 (0.2-1.3) mg/dL AST 47 H (14-36) U/L ALT 38 H (6-35) U/L Alkaline Phosphatase 64 (38-126) U/L Troponin I < 0.012 (0.000-0.034) ng/mL Total Protein 8.0 (6.3-8.2) g/dL Albumin 4.7 (3.5-5.1) g/dL Urine Color Yellow (Yellow) Urine Appearance Clear (Clear) Urine pH 6.0 (5.0-9.0) Ur Specific [place] 1.020 (1.001-1.035) Urine Protein Negative (Negative) mg/dL Urine Glucose (UA) Negative (Negative) mg/dL Urine Ketones Negative (Negative) mg/dL Ur Blood (Man) Negative (Negative) Urine Nitrate Negative (Negative) Urine Bilirubin Negative (Negative) Urine Urobilinogen 0.2 (<2.0) mg/dL Add Ur Microanalysis Reviewed Leukocyte Esterase Rfl 1+ H (Negative) CINDY/UL Urine RBC 0-2 (0-2) /hpf Urine WBC 11-20 H (0-3) /hpf Ur Squamous Epith Cells Moderate (Few) /hpf Urine Bacteria None seen /hpf Urine Casts 6-10 Urine Opiates Screen Negative (Negative) Urine Methadone Screen Negative (Negative) Ur Barbiturates Screen Negative (Negative) Ur Phencyclidine Scrn Negative (Negative) Ur Amphetamine Screen Negative (Negative) U Benzodiazepines Scrn Positive A (Negative) Urine Cocaine Screen Negative (Negative) U Cannabinoids Screen Negative (Negative) Ethyl Alcohol < 10 (<10) mg/dL <Kaia Gruber PA-C - Last Filed: 03/26/25 16:05> Lab Results 03/26/25 03/26/25 Range/Units 16:45 16:53 WBC 10.4 H (4.5-10.0) K/mm3 RBC 3.97 L (4.2-5.4) M/mm3 Hgb 13.0 (12.0-15.0) g/dL Hct 39.5 (37.0-47.0) % MCV 99.5 (80-100) fl MCH 32.7 (26-34) pg MCHC 32.9 (32-36) g/dl RDW 14.4 (11.5-14.5) % Plt Count 271 (150-375) k/mm3 MPV 10.0 (7.4-10.4) fl Immature Gran % (Auto) 0.3 (0-0.5) % Neut % (Auto) 50.8 (45.5-73.1) % Lymph % (Auto) 28.1 (18.3-44.2) % [place] % (Auto) 7.2 (2.6-8.5) % Eos % (Auto) 12.8 H (0-4.4) % Baso % (Auto) 0.8 (0.2-1.2) % Lymph # (Auto) 2.92 (0.9-3.2) K/mm3 [place] # (Auto) 0.8 H (0.1-0.6) K/mm3 Eos # (Auto) 1.3 H (0-0.3) K/mm3 Baso # (Auto) 0.1 (0.0-0.1) K/mm3 Abs Immat Gran (auto) 0.03 (0.00-0.031) K/mm3 Absolute Neuts (auto) 5.3 (1.3-6.7) K/mm3 Absolute Nucleated RBC 0.000 (0.0-0.012) K/mm3 Nucleated RBC % 0.0 (0.0-0.2) % PT 12.4 (11.1-14.7) Seconds INR 0.9 APTT 27.6 (22.3-36.8) Seconds Sodium 139 (137-145) mmol/L Potassium 3.2 L (3.4-5.0) mmol/L Chloride 99 (98-107) mmol/L Carbon Dioxide 30 (22-30) mmol/L Anion Gap 10 (4-12) mmol/L BUN 14 D (7-17) mg/dL Creatinine 0.81 (0.7-1.0) mg/dL Estim Creat Clear Calc 65 ml/min Estimated GFR > 60 (59 - ) Glucose 82 (65-110) mg/dL Calcium 9.5 (8.4-10.2) mg/dL Magnesium 1.7 (1.6-2.3) mg/dL Total Bilirubin 0.3 (0.2-1.3) mg/dL AST 47 H (14-36) U/L ALT 38 H (6-35) U/L Alkaline Phosphatase 64 (38-126) U/L Troponin I < 0.012 (0.000-0.034) ng/mL Total Protein 8.0 (6.3-8.2) g/dL Albumin 4.7 (3.5-5.1) g/dL Urine Color Yellow (Yellow) Urine Appearance Clear (Clear) Urine pH 6.0 (5.0-9.0) Ur Specific [place] 1.020 (1.001-1.035) Urine Protein Negative (Negative) mg/dL Urine Glucose (UA) Negative (Negative) mg/dL Urine Ketones Negative (Negative) mg/dL Ur Blood (Man) Negative (Negative) Urine Nitrate Negative (Negative) Urine Bilirubin Negative (Negative) Urine Urobilinogen 0.2 (<2.0) mg/dL Add Ur Microanalysis Reviewed Leukocyte Esterase Rfl 1+ H (Negative) CINDY/UL Urine RBC 0-2 (0-2) /hpf Urine WBC 11-20 H (0-3) /hpf Ur Squamous Epith Cells Moderate (Few) /hpf Urine Bacteria None seen /hpf Urine Casts 6-10 Urine Opiates Screen Negative (Negative) Urine Methadone Screen Negative (Negative) Ur Barbiturates Screen Negative (Negative) Ur Phencyclidine Scrn Negative (Negative) Ur Amphetamine Screen Negative (Negative) U Benzodiazepines Scrn Positive A (Negative) Urine Cocaine Screen Negative (Negative) U Cannabinoids Screen Negative (Negative) Ethyl Alcohol < 10 (<10) mg/dL <Eugenio Rachel MD - Last Filed: 03/26/25 20:17> Discharge Plan Discharge Clinical Impression: UTI (urinary tract infection) <Kaia Gruber PA-C - Last Filed: 03/26/25 16:05> Patient Disposition: Home <Kaia Gruber PA-C - Last Filed: 03/26/25 16:05> Condition: Stable <Kaia Gruber PA-C - Last Filed: 03/26/25 16:05> Instructions: Antibiotic Form, Urinary Tract Infection in Women (ED) <Kaia Gruber PA-C - Last Filed: 03/26/25 16:05> Patient Language: Czech <Kaia Gruber PA-C - Last Filed: 03/26/25 16:05> Prescriptions: New cephalexin 500 mg capsule 500 mg PO Q6H 7 Days Qty: 28 0RF No Action famotidine [Pepcid] 20 mg tablet 20 mg PO DAILY Qty: 14 0RF ibuprofen [IBU] 600 mg tablet 600 mg PO Q6H PRN (Reason: pain) Qty: 20 0RF ondansetron 4 mg tablet,disintegrating 4 mg PO Q6H PRN (Reason: nausea and vomiting) Qty: 10 0RF <Kaia Gruber PA-C - Last Filed: 03/26/25 16:05> Follow-up/Referrals: UNKNOWN,DOCTOR [Non-Staff] - Rashid Harrell MD [Physician] - <Kaia Gruber PA-C - Last Filed: 03/26/25 16:05> Time of Disposition: 20:17 <Kaia Gruber PA-C - Last Filed: 03/26/25 16:05> 20:17 <Eugenio Rachel MD - Last Filed: 03/26/25 20:17>
[2025-03-26 17:05] LABS: Basophils Absolute Auto 0.1 K/mm3 (0.0-0.1); Basophils Percent Auto 0.8 % (0.2-1.2); Eosinophils Absolute Auto 1.3 K/mm3 (0-0.3); Eosinophils Percent Auto 12.8 % (0-4.4); Hematocrit 39.5 % (37.0-47.0); Immature Granulocyte Absolute 0.03 K/mm3 (0.00-0.031); Immature Granulocyte Percent A 0.3 % (0-0.5); Lymphocytes Absolute Auto 2.92 K/mm3 (0.9-3.2); Lymphocytes Percent Auto 28.1 % (18.3-44.2); Mean Corpuscular HGB Conc 32.9 g/dl (32-36); Mean Corpuscular Hemoglobin 32.7 pg (26-34); Mean Corpuscular Volume 99.5 fl (80-100); Monocytes Absolute Auto 0.8 K/mm3 (0.1-0.6); Monocytes Percent Auto 7.2 % (2.6-8.5); Neutrophils Absolute Auto 5.3 K/mm3 (1.3-6.7); Neutrophils Percent Auto 50.8 % (45.5-73.1); Platelet Count Result 271 k/mm3 (150-375); Red Blood Count 3.97 M/mm3 (4.2-5.4); Red Cell Distribution Width 14.4 % (11.5-14.5); White Blood Count 10.4 K/mm3 (4.5-10.0)
[2025-03-26 17:18] LABS: Bacteria Urine None Seen /hpf; Need Manual Microscopic Reviewed; RBC Urine 0-2 /hpf (0-2); Squamous Epithelial Cell Urine Moderate /hpf (Few)
[2025-03-26 17:22] LABS: Alanine Aminotransferase 38 U/L (6-35); Albumin Level 4.7 g/dL (3.5-5.1); Alkaline Phosphatase 64 U/L (38-126); Anion Gap 10 mmol/L (4-12); Aspartate Amino Transferase 47 U/L (14-36); Bilirubin,Total 0.3 mg/dL (0.2-1.3); Blood Urea Nitrogen 14 mg/dL (7-17); Calcium 9.5 mg/dL (8.4-10.2); Carbon Dioxide 30 mmol/L (22-30); Chloride 99 mmol/L (98-107); Estimated CRCL calculation 65 ml/min; Estimated Glomerular Filt Rate > 60; Glucose 82 mg/dL (65-110); Magnesium 1.7 mg/dL (1.6-2.3); Potassium 3.2 mmol/L (3.4-5.0); Sodium 139 mmol/L (137-145)
[2025-03-26 17:23] LABS: Add Urine Microscopic? YES; Appearance Urine Clear (Clear); Bilirubin Urine Negative (Negative); Blood Urine Negative (Negative); Color Urine Yellow (Yellow); Glucose Urine UA Negative (Negative); Ketones Urine Negative (Negative); Leukocyte Esterase Ur 1+ LEU/UL (Negative); Nitrate Urine Negative (Negative); Protein Urine Negative (Negative); Urobilinogen Urine 0.2 mg/dL (<2.0)
[2025-03-26 17:23] LABS: Ethanol < 10 mg/dL (<10); INR 0.9; Prothrombin Time 12.4 Seconds (11.1-14.7)
[2025-03-26 17:24] LABS: Amphetamine Screen Urine Negative (Negative); Barbiturate Screen Urine Negative (Negative); Benzodiazepines Screen Urine Positive (Negative); Cannabinoid Screen Urine Negative (Negative); Cocaine Screen Urine Negative (Negative); Methadone Screen Urine Negative (Negative); Opiate Screen Urine Negative (Negative); Partial Thromboplastin Time 27.6 Seconds (22.3-36.8); Phencyclidine Screen Urine Negative (Negative)
[2025-03-26 17:35] LABS: Troponin I < 0.012 ng/mL (0.000-0.034)
[2025-03-26 18:30] VITALS: BP 175/93; PULSE 90; RESP 19; O2SAT 100
--- OUTSIDE RECORDS SUMMARY | 2025-03-26 18:47 | XMS_ITS | Referral Summary ---
Author Organization [address] Address [address] [place] [id number] Care Team Providers Care Wholesaler Name Role Phone Claudia Graham DO Primary Care Provider [phone] Allergies Active Allergy Reactions Criticality Noted Date Comments House Dust Sneezing Low 03/07/2023 Mold Extracts Unknown 03/07/2023 Medications lisinopriL (PRINIVIL,ZESTRIL) 10 mg tabletIndications: hypertension Take 1 tablet (10 mg total) by mouth dope heater before breakfast 01/15/20 18 Active Lo Loestrin Fe 1 mg-10 mcg (24)/10 mcg (2) tabletIndications: Contraception Take 1 tablet by mouth dope heater before breakfast 10/31/20 20 Active omeprazole (PriLOSEC) 40 mg capsuleIndications :Treatment of Non-Bleeding Gastric Disorder Take 1 capsule (40 mg total) by mouth dope heater before breakfast 08/21/20 21 Active metroNIDAZOLE (METROCREAM) [...] (02/23/2023): Added automatically from request for surgery [id number] Blurred vision, 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 There is no laboratory evidence of HCV infection. In most cases, no further action is required. However, if recent HCV exposure is suspected, a test for HCV RNA (test code 10590) is suggested. For additional information please refer to http://education.[employer]/faq/DQN53v9 (This link is being provided for informational/ educational purposes only.) Blood specimen (specimen) 12/18/2020 5:21 PM AUTO TRAVEL COUNSELOR 12/18/2020 5:22 PM AUTO TRAVEL COUNSELOR us Isabel Medina MD LAB MICROBIOLOGY - GENERAL ORDERABLES Final Result [facility] [id number] [address] [facility] [place] [id number] from Last 3 Months or Most Recently Relevant to Health Maintenance Insurance [facility] CHOICE PLUS [facility] HMO/PPO Address: [address] [address] [place] [address] [facility] MEDICARE Care Teams Wholesaler Relationship Specialty Start Date End Date Claudia Graham DO [address] [place] [id number] PCP - General Family Medicine 03/02/24
--- OUTSIDE RECORDS SUMMARY | 2025-03-26 18:47 | XMS_ITS | Clinical Summary ---
Author Organization [facility] Address [address] [place] [id number] Care Team Providers Care Tele Marketing Executive Name Role Phone None, Provider MD Primary [...] complete this topic Insurance MEDICARE Care Teams Tele Marketing Executive Relationship Specialty Start Date End Date None, Provider, PCP - General UNKNOWN PHYSICIAN SPECIALTY 09/05/24
--- OUTSIDE RECORDS SUMMARY | 2025-03-26 18:47 | XMS_ITS | Clinical Summary ---
Author Organization [facility] Address [address] [place] [address] Care Team Providers Care Guest Relations Executive Name Role Phone Unavailable Primary Care Provider Unavailabl e Source Comments [facility],non-owned Affiliates and Associated Physician Practices is amultiple site organization consisting of ambulatory clinics and hospital sitesin [place], [place], [place] and [place]. This disclosure is being madepursuant to the Care Everywhere program and may not contain all information available regarding this patient. Last updated 18.[facility] Allergies No known active allergies Medications * [...] Department Care Team Description 01/04/2025 10:05 PM WEAVING TEACHER - 01/05/2025 1:47 AM WEAVING TEACHER Emergency ER at [facility] [address] [place] [address] Rashad London MD Rash and other nonspecific [...] Comments Blood Pressure 162/106 01/04/2025 10:50 PM WEAVING TEACHER Pulse 98 01/04/2025 9:58 PM WEAVING TEACHER Temperature 36.1 C (97 F) 01/04/2025 9:58 PM WEAVING TEACHER Respiratory Rate 20 01/04/2025 9:58 PM WEAVING TEACHER Oxygen Saturation 100% 01/04/2025 10:50 PM WEAVING TEACHER Inhaled Oxygen Concentration - - Weight 65.8 kg (145 lb) 01/04/2025 9:58 PM WEAVING TEACHER Height 167.6 cm (5' 6 ) 01/04/2025 9:58 PM WEAVING TEACHER Body Mass Index 23.4 01/04/2025 9:58 PM WEAVING TEACHER Plan of Treatment Health Maintenance Due Date [...] DRUG SCREEN IMMUNOASSAY STAT 01/04/2025 10:48 PM WEAVING TEACHER URINALYSIS REFLEX TO MICROSCOPIC NO CULTURE STAT 01/04/2025 10:48 PM WEAVING TEACHER ERYTHROCYTE SEDIMENTATION RATE Add on 01/04/2025 10:16 PM WEAVING TEACHER HCG BLOOD QUALITATIVE STAT 01/04/2025 10:16 PM WEAVING TEACHER COMPREHENSIVE METABOLIC PANEL STAT 01/04/2025 10:16 PM WEAVING TEACHER CBC W AUTO DIFFERENTIAL STAT 01/04/2025 10:16 PM WEAVING TEACHER MAMMOGRAM Routine 09/15/2022 LIPID PROFILE Routine 08/12/2022 5:20 PM CDT Recent weight gain from Last 3 Months or Most Recently Relevant to Health Maintenance Results * (ABNORMAL) URINALYSIS REFLEX TO MICROSCOPIC NO CULTURE (01/04/2025 10:48 PM WEAVING TEACHER) Color UA Yellow Yellow, Straw 01/04/2025 10:57 PM WEAVING TEACHER [facility] Clarity UA Clear Clear 01/04/2025 10:[address] [facility] Glucose UA Normal Normal 01/04/2025 10:[address] [facility] Bilirubin UA Negative Negative 01/04/2025 10:[address] [facility] Ketone UA Negative Negative 01/04/2025 10:[address] [facility] Specific [place] UA 1.046(H) 1.005 - 1.030 01/04/2025 10:[address] [facility] Blood UA Negative Negative 01/04/2025 10:[address] [facility] pH UA 6.0 5.0 - 9.0 pH 01/04/2025 10:[address] [facility] Protein UA Trace(A) Negative 01/04/2025 10:[address] [facility] Urobilinogen UA Normal Normal mg/dL 025 10:[address] [facility] Nitrite UA Negative Negative 01/04/2025 10:[address] [facility] Leukocyte UA Negative Negative 01/04/2025 10:[address] [facility] Urine URINE SPECIMEN OBTAINED BY CLEAN CATCH PROCEDURE / Unknown Collection / Unknown 01/04/2025 10:48 PM WEAVING TEACHER 01/04/2025 10:52 PM [facility] Denia Soriano CHEMICAL OPERATIONS AND TRAINING-BRICKLAYER APPRENTICE LAB - URINALYSIS OR DERABLES Final Result [facility] [address] [address] * (ABNORMAL) URINE DRUG SCREEN IMMUNOASSAY (01/04/2025 10:48 PM WEAVING TEACHER) Amphetamines Screen Urine Detected(A) Not detected 01/05/2025 1:04 AM [facility] Barbiturates Screen Urine Detected(A) Not detected 01/05/2025 1:04 AM [facility] Benzodiazepines Screen Urine Not detected Not detected 01/05/2025 1:04 AM [facility] Cannabinoids Screen Urine Detected(A) Not detected 01/05/2025 1:04 AM [facility] Cocaine Screen Urine Not detected Not detected 01/05/2025 1:04 AM [facility] Fentanyl Urine Not detected Not detected 01/05/2025 1:04 AM [facility] Methadone Screen Urine Not detected Not detected 01/05/2025 1:04 AM [facility] Opiate Screen Urine Detected(A) Not detected 01/05/2025 1:04 AM [facility] Phencyclidine Screen Urine Not detected Not detected 01/05/2025 1:04 AM [facility] Urine URINE / Unknown Collection / Unknown 01/04/2025 10:48 PM WEAVING TEACHER 01/04/2025 10:[address] [facility] - 01/05/2025 1:04 AM [facility] This drug screen is designed [...] 300 ng/mL PHENCYCLIDINE(PCP) 25 ng/mL Denia Soriano APRN-BRICKLAYER APPRENTICE LAB - URINE SERGING MACHINE OPERATOR AUTOMATIC RY ORDERABLES Final Result [facility] [address], [place] [id number] * ERYTHROCYTE SEDIMENTATION RATE (01/04/2025 10:16 PM [facility]) [facility] Erythrocyte Sedimentation Rate Automated <1 0 - 30 MM/HR 01/05/2025 4:[address] [facility] Blood BLOOD SPECIMEN / Unknown Venipuncture / Unknown 01/04/2025 10:16 PM WEAVING TEACHER 01/04/2025 10:20 PM WEAVING TEACHER us Rashad London MD LAB - HEMATOLOGY ORDERABLE S Final Result [facility] [address] [address] * (ABNORMAL) CBC W AUTO DIFFERENTIAL (01/04/2025 10:16 PM WEAVING TEACHER) WBC 10.7 4.0 - 10.7 x10E9/L 01/04/2025 10:[address] [facility] RBC Count 3.77(L) 3.90 - 5.20 x10E12/L 01/04/2025 10:[address] [facility] Hemoglobin 12.5 11.9 - 15.8 g/dL 01/04/2025 10:[address] [facility] Hematocrit 38.4 34.8 - 46.1 % 01/04/2025 10:[address] [facility] MCV 101.9(H) 80.0 - 98.0 fL 01/04/2025 10:[address] [facility] MCH 33.2 26.7 - 33.6 pg 01/04/2025 10:[address] [facility] MCHC 32.6 31.7 - 36.3 g/dL 01/04/2025 10:[address] [facility] RDW-CV 14.2 11.3 - 14.8 % 01/04/2025 10:[address] [facility] Platelet Count 256 150 - 420 x10E9/L 01/04/2025 10:[address] [facility] MPV 10.0 7.8 - 11.4 fL 01/04/2025 10:[address] [facility] Neutrophil % 73.9 41.0 - 74.0 % 01/04/2025 10:[address] [facility] Lymphocyte % 14.1(L) 17.0 - 47.0 % 01/04/2025 10:[address] [facility] Monocyte % 4.3 3.0 - 11.0 % 01/04/2025 10:[address] [facility] Eosinophil % 7.2(H) 0.0 - 7.0 % 01/04/2025 10:[address] [facility] Basophil % 0.2 0.0 - 1.6 % 01/04/2025 10:[address] [facility] Immature Granulocytes % 0.3 0.0 - 1.0 % 01/04/2025 10:[address] [facility] Neutrophil Absolute 7.89(H) 1.60 - 7.50 x10E9/L 01/04/2025 10:[address] [facility] Lymphocyte Absolute 1.50 1.00 - 4.40 x10E9/L 01/04/2025 10:[address] [facility] Monocyte Absolute 0.46 0.15 - 1.00 x10E9/L 01/04/2025 10:[address] [facility] Eosinophil Absolute 0.77(H) 0.00 - 0.60 x10E9/L 01/04/2025 10:[address] [facility] Basophil Absolute 0.02 0.00 - 0.13 x10E9/L 01/04/2025 10:[address] [facility] Blood BLOOD SPECIMEN / Unknown Venipuncture / Unknown 01/04/2025 10:16 PM WEAVING TEACHER 01/04/2025 10:20 PM [facility] Denia Soriano APRN-BRICKLAYER APPRENTICE LAB - HEMATOLOGY OR DERABLES Final Result [facility] [address] [place] [address] * (ABNORMAL) COMPREHENSIVE METABOLIC PANEL (01/04/2025 10:16 PM [facility]) [facility] Glucose 86 70 - 99 mg/dL 01/04/2025 10:[address] [facility] Sodium 141 136 - 145 mmol/L 01/04/2025 10:[address] [facility] Potassium 3.9 3.5 - 5.1 mmol/L 01/04/2025 10:[address] [facility] Chloride 106 98 - 107 mmol/L 01/04/2025 10:[address] [facility] CO2 26 22 - 29 mmol/L 01/04/2025 10:[address] [facility] Calcium 8.5 8.4 - 10.4 mg/dL 01/04/2025 10:[address] [facility] Anion Gap 9 6 - 16 mmol/L 01/04/2025 10:[address] [facility] BUN 8 7 - 26 mg/dL 01/04/2025 10:[address] [facility] Creatinine 0.96 0.57 - 1.11 mg/dL 01/04/2025 10:[address] [facility] Alkaline Phosphatase 61 40 - 150 U/L 01/04/2025 10:[address] [facility] ALT 40 0 - 55 U/L 01/04/2025 10:[address] [facility] AST 31 5 - 34 U/L 01/04/2025 10:[address] [facility] Protein Total 6.0(L) 6.4 - 8.3 gm/dL 01/04/2025 10:[address] [facility] Albumin 3.5 3.4 - 5.0 gm/dL 01/04/2025 10:[address] [facility] Bilirubin Total 0.4 0.2 - 1.2 mg/dL 01/04/2025 10:[address] [facility] eGFR by CKD-EPI 72(L) >=90 mL/min/1.7 3 m2 01/04/2025 10:[address] [facility] Blood BLOOD SPECIMEN / Unknown Venipuncture / Unknown 01/04/2025 10:16 PM WEAVING TEACHER 01/04/2025 10:20 PM WEAVING TEACHER Denia Soriano CHEMICAL OPERATIONS AND TRAINING-BRICKLAYER APPRENTICE LAB - CHEMISTRY ORD ERABLES Final Result [facility] [address] [place] [address] * HCG BLOOD QUALITATIVE (01/04/2025 10:16 PM WEAVING TEACHER) HCG Qual Serum Negative Negative 01/04/2025 10:[address] [facility] Blood BLOOD SPECIMEN / Unknown Venipuncture / Unknown 01/04/2025 10:16 PM WEAVING TEACHER 01/04/2025 10:20 PM WEAVING TEACHER Narrative [facility] - 01/04/2025 10:37 PM WEAVING TEACHER Specimens containing human anti-mouse antibodies may exhibit false positive or false negative results. If qualitative interpretation is inconsistent with clinical evaluation, consider confirmation by an alternative hCG method. Denia PALMA LAB - CHEMISTRY ORD ERABLES Final Result [facility] [address] [address] * MAMMOGRAM (09/15/2022) Anatomical Region Laterality Modality [...] LDL-C. Erasmo SS et al. ROBERTO. 2013;310(19): 8133-1676 (http://education.[employer].RecordSetter/faq/LMJ680) CHOL/HDLC RATIO 1.8 <5.0 (calc) [facility] Non HDL Cholesterol 139(H) <130 mg/dL (calc) [facility] Comment: For patients with diabetes plus 1 major ASCVD risk factor, treating to a non-HDL-C goal of <100 mg/dL (LDL-C of <70 mg/dL) is considered a therapeutic option. Test Performed at: [facility] [address] [address] KAMINI PERLA DO,MPH Blood BLOOD SPECIMEN / Unknown 08/12/2022 5:20 PM CDT 08/12/2022 5:22 PM CDT Logan Kwon PA-C LAB - CHEMISTRY ORDERABLES Final Result [facility] [id number] [address] [address] from Last 3 Months or Most Recently Relevant to Health Maintenance Insurance MEDICARE
--- OUTSIDE RECORDS SUMMARY | 2025-03-26 18:47 | XMS_ITS | Clinical Summary ---
Author Organization [address] Address [address] [place] [id number] Care Team Providers Care Audiovisual Technician Name Role Phone Claudia Graham DO Primary Care Provider [phone] Allergies Active Allergy Reactions Criticality Noted Date Comments House Dust Sneezing Low 03/07/2023 Mold Extracts Unknown 03/07/2023 Medications lisinopriL (PRINIVIL,ZESTRIL) 10 mg tabletIndications: hypertension Take 1 tablet (10 mg total) by mouth phlebotomy lab assistant before breakfast 01/15/20 18 Active Lo Loestrin Fe 1 mg-10 mcg (24)/10 mcg (2) tabletIndications: Contraception Take 1 tablet by mouth phlebotomy lab assistant before breakfast 10/31/20 20 Active omeprazole (PriLOSEC) 40 mg capsuleIndications :Treatment of Non-Bleeding Gastric Disorder Take 1 capsule (40 mg total) by mouth phlebotomy lab assistant before breakfast 08/21/20 21 Active metroNIDAZOLE [...] (02/23/2023): Added automatically from request for surgery [id number] Blurred vision, bilateral 09/07/2022 Bilateral retinal lattice [...] HEPATITIS C ANTIBODY Routine 12/18/2020 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 There is no laboratory evidence of HCV infection. In most cases, no further action is required. However, if recent HCV exposure is suspected, a test for HCV RNA (test code 84203) is suggested. For additional information please refer to http://[employer].Multigig/faq/HCD51u1 (This link is being provided for informational/ educational purposes only.) Blood specimen (specimen) 12/18/2020 5:21 PM SHEET METAL ROOFER 12/18/2020 5:22 PM SHEET METAL ROOFER Isabel Medina MD LAB MICROBIOLOGY - GENERAL ORDERABLES Final Result [facility] [address] [place] [address] from Last 3 Months or Most Recently Relevant to Health Maintenance Insurance [facility] CHOICE PLUS [facility] MEDICARE Care Teams Audiovisual Technician Relationship Specialty Start Date End Date Claudia Graham, [address] [id number] PCP - General Family Medicine 03/02/24
[2025-03-26] MEDS: MAGNESIUM SULF 2 GM/WATER 50ML 2 GM/50 ML BAG IVPB (19:24)
[2025-03-26] MEDS: diphenhydrAMINE HCl INJ 50 MG/ML VIAL 25 MG IV PUSH (19:24)
[2025-03-26] MEDS: PROCHLORPERAZINE EDISYLATE 10 MG/2 ML VIAL IV PUSH (19:24)
[2025-03-26] MEDS: POTASSIUM CHLORIDE 20 MEQ PACKET (FOR LIQUID) 40 MEQ PO (19:24)
[2025-03-26] MEDS: ALPRAZolam (*CRX) 0.5 MG TABLET PO (20:45)
[2025-03-26] MEDS: CEPHALEXIN 500 MG CAPSULE PO (20:45)
== END 2025-03-26 20:52 | disposition home or self-care (01) ==
PROVIDERS: Physician Assistant; Emergency Provider Emergency Medicine
DX: N39.0 Urinary tract infection, site not specified (principal); F17.290 Nicotine dependence, other tobacco product, uncomplicated
CPT/HCPCS: 36415; 70450; 71045; 80053; 80307; 81001; 82077; 83735; 84484; 85025; 85610; 85730; 87086; 93005; 96365; 96366; 96375; 99284; A9270; J0780; J1200; J3475

== ENCOUNTER 2025-04-22 14:42 | Emergency (ER) | payer MEDICARE, SELFPAY ==
[2025-04-22 14:43] VITALS: BP 155/110; PULSE 95; RESP 16; TEMP 36.4; O2SAT 97
--- NOTE | 2025-04-22 14:48 | PC.NURSE ---
Patient not sitting still while BP being taken. Patient having to be redirected to keep arm straight and stay still for accurate reading.
--- NOTE | 2025-04-22 14:48 | PC.NURSE ---
Patient seen pacing in lobby with steady gait while playing on phone. Patient in NAD.
--- OUTSIDE RECORDS SUMMARY | 2025-04-22 15:50 | XMS_ITS | Continuity of Care Document ---
Author Organization [facility] Address [address] [place] [address] Phone Care Team Providers Care Second Watch Sergeant Name Role Phone Bear Zimmerman DPM Unavailable Unavailable Allergies, Adverse Reactions, Alerts Substance Reaction Status Criticality No Known Allergies Active No Inform ation Medications Medication Instructions Dosage Effective Dates (start - stop) Status Comments ADDERALL (unknown strength) Not Available - Active MICROGESTIN (unknown strength) Not Available - Active Percocet 5 mg-325 mg tablet take 1 tablet by oral route every 6 hours as needed 1.00 tablet - No Longer Active naproxen 500 mg tablet take 1 tablet by oral route 2 times every day with food 500 MG - No Longer Active Procedures Procedure Date OFFICE/OUTPATIENT VISIT NEW Advance Directives Directive Yes / No Effective Date File Name No Information Encounters Encounter Description Practice Location Reason(s) For Visit Diagnoses Date Provider Providers Copied on Encounter OFFICE/OUTPAT IENT VISIT NEW [facility] , [address], [place], [address], tel:[phone] [facility] left ankle (chief complaint) ankle sprain Erasmo Sifuentes. [address], [place], [place], [id number]. tel: [phone] Referring Provider: Claudia Kuhn, [address], [place], [address] . tel:[phone] Family History Family Member Type Diagnosis Age At Onset No Information Payers Payer name Insurance type Covered libertarian ID Authorradu tamayo(s) No Information Social History Type Description Quantity Date Captured Comments Alcohol Use Details Caffeine Use Details Unknown Tobacco Use Status Smoking Status Smoker, current stat us unknown Non-Smoking Tobacco Use Details : No Details Available : No Details Available Sex Female Chief Complaint And Reason For Visit From encounter dated '06/13/2014 13:20'. left ankle (chief complaint) Reason For Referral Reason For Referral No Information Plan Of Treatment Date Type Action Status Referral Ordered: RADEX ANKLE COMPL MINIMUM 3 VIEWS LT ordered History Of Present Illness Encounter Date Complaint History Of Prese nt Illness left ankle Functional Status Date Functional Assessmen t No Information Instructions Date Instruction Additional Infor mation No Information Assessments Type Assessment Date assessment ankle sprain Patient Care Teams Name Effective Dates (start - stop) Status Members No Information
--- OUTSIDE RECORDS SUMMARY | 2025-04-22 15:50 | XMS_ITS | Continuity of Care Document ---
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 IF YOU HAVE AN OUTBREAK INCREASE TO 1 TABLET THREE TIMES DAILY FOR 10 DAYS - Active Soolantra 1 % topical cream apply by topical route every day a pea-sized amount to cover areas of face with thin layer avoiding the eyes and lips as needed 0.00 - Active ondansetron HCl 4 mg tablet take 1 tablet by oral route every 8 hours as needed - Active valacyclovir 1 gram tablet take 2 tablet by oral route every 12 hours @ onset of fever blister x 2 doses as needed - Active iron 325 mg (65 mg iron) tablet take 1 tablet by oral route every day 325 MG - Active Fish Oil 1,200 mg (144 mg-216 mg) capsule - Active Vitamin C 500 mg tablet - Active Vitamin D3 10 mcg (400 unit) tablet - Active omeprazole 40 mg capsule,delayed release take 1 capsule by oral route every day 40 MG - Active quetiapine 100 mg tablet take 1 tablet by oral route every day 100 MG - Active hydroxyzine HCl 25 mg tablet take 1 tablet by oral route 3 times every day as needed as needed 25 MG - Active buprenorphine 8 mg-naloxone [address] 1 film by sublingual route every day allow to dissolve slowly in mouth without chewing or swallowing 1.00 film - Active GABAPENTIN (unknown strength) 600 mg capsule by oral route 3 times every day Not Available - Active estradiol 0.1 mg/24 hr semiweekly transdermal patch apply 1 patch by transdermal route 2 times every week 1.00 patch - Active Adderall 20 mg tablet take 1 tablet by oral route 3 times every day before breakfast 20 MG - Active cetirizine 10 mg tablet take 1 tablet by oral route every day 10 MG - Active Cipro 250 mg tablet take 1 tablet by oral route every 12 hours x7 days - No Longer Active Procedures Procedure Date ECHO EXAM OF ABDOMEN ECHO EXAM OF ABDOMEN Pt inelig neg scrn depres URINALYSIS, DIPSTICK (UA) - Office Lab O OFFICE [id number] SYST BP >= 140 MM HG6 IT DIAST BP >= 90 MM HG Pt inelig neg scrn depres CBC, INC PLATELETS AND DIFFERENTIAL COMPREHEN METABOLIC PANEL CMP IRON (FE), TOTAL TIBC, & % SATURATION THYROID STIMULATION HORMONE(TSH) 2023 VITAMIN B12 (SERUM) ROUTINE VENIPUNCTURE OFFICE [id number] SYST BP LT 130 MM HG DIAST BP 80-89 MM HG Pt inelig neg scrn crys SCREENING MAMMOGRAM (CAD) OFFICE [id number] PPPS, initial visit SYST BP LT 130 MM HG DIAST BP < 80 MM HG OFFICE [id number] SYST BP LT 130 MM HG DIAST BP < 80 MM HG COLONOSCOPY AND BIOPSY UPPER GI ENDOSCOPY BIOPSY OFFICE [id number] BODY MASS INDEX DOCD SYST BP GE 130 - 139MM HG DIAST BP 80-89 MM HG Pt inelig neg scrn depres URINALYSIS, DIPSTICK (UA) - Office Lab F OFFICE [id number] BODY MASS INDEX DOCD SYST BP LT 130 MM HG DIAST BP 80-89 MM HG OFFICE [id number] Pt inelig neg scrn depres URINALYSIS, DIPSTICK (UA) - Office Lab D OFFICE [id number] BODY MASS INDEX DOCD SYST BP GE 130 - 139MM HG DIAST BP < 80 MM HG Pt inelig neg scrn depres ROUTINE VENIPUNCTURE OFFICE [id number] BODY MASS INDEX DOCD SYST BP LT 130 MM HG DIAST BP 80-89 MM HG OFFICE [id number] Brief Emotional/Behavioral A ssessment, With Scoring/Doct, Per St[facility] Instrument Clin depression screen doc THYROID STIMULATION HORMONE(TSH) 2019 ROUTINE VENIPUNCTURE OFFICE [id number] BODY MASS INDEX DOCD SYST BP >= 140 MM HG6 IT DIAST BP >= 90 MM HG Kept Appointment No Charge Encounter Sep Advance Directives Directive Yes / No Effective Date File Name Life Support Not Answered N/A N/A Intubation Not Answered N/A N/A Antibiotics Not Answered N/A N/A IV Fluid Support Not Answered N/A N/A Tube Feed Not Answered N/A N/A Other Directive N/A N/A WARNING:The information contained in this section is historical and is provided for information only and does not constitute a legal document or any assurance that the information is still accurate. Please verify the information with the león of the legal document before using it for clinical purposes. Encounters Encounter Description Practice Location Reason(s) For Visit Diagnoses Date Provider Providers Copied on Encounter [facility], [address], [place], [place], [address] , tel: [phone] [facility] No Information 5 Sanots Taylor. [address], [place], [place], [address] , [place]. tel: [phone] [facility], [address], [place], [place], [address] , tel: [phone] [facility] Chest tightness 4 Santos Taylor. [address], [place], [address] , [place]. tel: [phone] [facility], [address], [place], [place], [address] , [place] tel: [phone] [facility] No Information 4 Santos Taylor. [address], [place], [place], [address] , [place]. tel: [phone] [facility], [address], [place], [place], [address] , [place] tel: [phone] [facility] No Information 4 Geovanny Steven. [address] [place] [address], [id number] , [place]. tel: [phone] Referring Provider: Claudia Graham, [address] [facility] [address], [place], [address] . tel:[phone] OFFICE BTZGJ-IYA-XL [facility], [address], [place], [place], [address] , tel: [phone] [facility] acute problem (chief complaint) UTI symptomsNausea and vomiting, unspecified vomiting typeSubacute sinusitis, unspecified location 4 Marc Bro. [address], [place], [place], [address] , [place]. tel: [phone] Referring Provider: [address] [facility] [address], [place], [address] . tel:[phone] OFFICE USWWD-SJE-JM [facility], [address], [place], [place], [address] , tel: [phone] [facility] acute problem (chief complaint) Weight lossDelusions of parasitosisPersi stent recurrent vomiting 4 Marc Bro. [address], [place], [place], [id number] , [place]. tel: [phone] Referring Provider: Claudia Graham, [address] [facility] [address], [place], [address] . tel:[phone] OFFICE QDVXI-DMH-YM [facility], [address], [place], [place], [address] , [place] tel: [phone] [facility] Medicare preventive (chief complaint)ER F/u (chief complaint) Primary hypertensionEnco unter for screening mammogram for malignant neoplasm of breastRecurrent syncopePersisten t recurrent vomitingEkbom's delusional parasitosis 4 Santos Taylor. [address], [place], [place], [address] , [place]. tel: [phone] Referring Provider: [address] [facility] [address], [place], [address] . tel:[phone] [facility], [address], [place], [place], [address] , [place] tel: [phone] [facility] Re-establish (chief complaint) Encounter for screening mammogram for malignant neoplasm of breastAlopeciaPs ychosis, unspecified psychosis type 4 Santos Taylor. [address], [place], [place], [address] , [place]. tel: [phone] Referring Provider: Claudia Graham, [address] [facility] [address], [place], [address] . tel:[phone] [employer], [address], [place], [place], [address] , tel: [phone] [facility] No Information 1 Pam Sajidul. [address] [place] [address], [address], [address] , . tel: [phone] Referring Provider: Claudia Graham, [address] [facility] [address], [place], [address] . tel:[phone] [employer] [facility], [address], [place], [place], [address] , tel: [phone] [facility] No Information 1 Pam Sajidul. [address] [place] [address], [address], [id number] , . tel: [phone] OFFICE EAHTD-JQC-CO MP-MED [facility], [address], [place], [place], [address] , tel: [phone] [facility] Bloating (chief complaint)Janusz ght gain (chief complaint) Abnormal bowel movementAbdomina l bloatingFHx: colon cancerBlood in stoolHeartburn 1 Pam Sajidul. [address] [place] [address], [address], [id number] , . tel: [phone] Referring Provider: Claudia Graham, [address] [facility] [address], [place], [address] . tel:[phone] OFFICE XGMPX[facility]LOG[facility]CF [facility], [address], [place], [place], [address] , tel: [phone] [facility] Hypertension (chief complaint)Dep ression (chief complaint)Abn ormal bowel movements (chief complaint) Hypertension, unspecified typeEncntr screen mammogram for malignant neoplasm of breastUrinary frequencyAbnorma l bowel movement 1 Marc Bro. [address], [place], [place], [address] , [place]. [phone] Referring Provider: [address] [facility] [address], [place], [address] . tel:[phone] OFFICE PPZPS-WOO-FU PANDED [facility], [address], [place], [place], [address] , tel: [phone] [facility] Telehealth (chief complaint)acu te problem (chief complaint) Abnormal stoolsPain of joint of both handsPain in joints of left handConfusionPsy chosis, unspecified psychosis type 1 Marc Bro. [address], [place], [place], [address] , [place]. tel:[phone] Referring Provider: [address] [facility] [address], [place], [address] . tel:[phone] OFFICE MFAFP-FAE-YZ [facility], [address], [place], [place], [address] , [place] tel: [phone] [facility] UTI (chief complaint)Res tart OCP (chief complaint)Fat igue (chief complaint) Body mass index (BMI) 19.9 or less, adultDysuriaChro joan fatigueScreening for diabetes mellitusVitamin D deficiencyEndome triosisBody mass index (BMI) 20.0-20.9, adult 0 Marc Bro. [address], [place], [place], [address] , [place]. tel:[phone] Referring Provider: [address] [facility] [address], [place], [address] . tel:[phone] OFFICE FTXOW-IXH-LT [facility], [address], [place], [place], [address] , tel: [phone] [facility] Rash (chief complaint)Anx iety (chief complaint) Body mass index (BMI) 19.9 or less, adultEncntr screen mammogram for malignant neoplasm of breastPsychosis, unspecified psychosis typeSkin lesion of scalpBody mass index (BMI) 20.0-20.9, adult Sep- 0 Marc Adali. [address], [place], [place], [address] , [place]. tel: [phone] Referring Provider: Claudia Grhaam, [address], [place], [address] . tel:[phone] [facility], [address], [place], [place], [address] , [place] tel: [phone] Care Management Anxiety 0 Jen Patel. [address], [place], [place], [address] , [place]. tel: [phone] OFFICE ZGREE-ITE-UW PANDED [facility], [address], [place], [place], [address] , [place] tel: [phone] [facility] acute problem (chief complaint)Chr onic Conditions (chief complaint) Scalp lesionAnxietyFam ade history of thyroid diseaseScreening cholesterol level 0 Jen Amanda. [address], [place], [place], [address] , [place]. tel: [phone] Referring Provider: Claudia Graham, [address], [place], [address] . tel:[phone] OFFICE DOMLW-SWN-WA [facility], [address], [place], [place], [address] , [place] tel: [phone] [facility] Medicine Anxiety (chief complaint)Jared h (chief complaint)Hyp ertension (chief complaint) Body mass index (BMI) 19.9 or less, adultAnxietyEsse ntial hypertensionPlaq ue psoriasisBody mass index (BMI) 20.0-20.9, adult Nov- 0 Marc Adali. [address], [place], [place], [address] , [place]. tel: [phone] Referring Provider: [address], [place], [address] . tel:[phone] [facility], [address], [place], [place], [address] , tel: [phone] [facility] No Information 9 Johanna Carbajal. [address], [place], [place], [address] , . tel: [phone] Referring Provider: Claudia Graham, [address] [facility] [address], [place], [address] . tel:[phone] [facility], [address], [place], [place], [address] , tel: [phone] [facility] Alcohol abuse with alcohol-induced disorderOpioid abuse with intoxication with complication 8 Santos Taylor. [address], [place], [address] , . tel: [phone] Referring Provider: Claudia Graham, [address] [facility] [address], [place], [address] . tel:[phone] [facility], [address], [place], [place], [address] , tel: [phone] [facility] No Information 8 Santos Taylor. [address], [place], [address] , . tel: [phone] [facility], [address], [place], [place], [address] , tel: [phone] [facility] No Information 8 Santos Taylor. [address], [place], [place], [address] , [place]. tel: [phone] Family History Family Member Type Diagnosis Age At Onset Mother Problem (finding) Alive and well Mother Problem (finding) hypercholesterolemia Father Problem (finding) Leukemia Sister Problem (finding) Diabetes mellitus Sister Problem (finding) asthma Mother Problem (finding) hypertension Sister Problem (finding) seizure disorder Immunizations Vaccine Date Status Comments Fluzone Quad, preservative free, split virus, 0.5mL dosage refused Source: New Immuniza tion Record Moderna Vac bivalent, 10 mcg/0.2 mL dosage administered Source: Other Provid er Tdap administered Source: Source Unspecified Payers Payer name Insurance type Covered democrat ID Authoriza tion(s) MEDICARE MB [id number] MEDICARE [id number] Social History Type Description Quantity Date Captured Comments Alcohol Use Details Unknown Caffeine Use Details Unknown Tobacco Use Status Smoking Status No Information Sex Female Sexual Orientation Straight or heterosexual Gender Identity Female Chief Complaint And Reason For Visit No Information Reason For Referral Reason For Referral No Information Plan Of Treatment Date Type Action Status Goal Dietary manageme nt education, guidance, and counseling completed Goal Dietary manageme nt education, guidance, and counseling completed Goal Dietary manageme nt education, guidance, and counseling completed Referral Referred To: [address] [place] [address], [id number] [phone] Ordered: CT angiography chest w/contrast/noncontrast ordered Referral Referred To: [address] [place] [address]
[address], [phone] Ordered: Stress echo ordered Referral Referred To: [address] [place] [address], [phone] Ordered: Ultrasound of epigastrium and right upper quadrant of abdomen ordered Referral Ordered: Electrocardiogram with interpretation ordered Referral Referred To: [address] [place] [address] [place] [address], [phone] Ordered: 2D echocardiography ordered Referral Referred To: [address] [place] [address], [phone] Ordered: US RUQ abdomen ordered Referral Referred To: [address] [place] [address]
[address] [place] [address], [phone] Ordered: Xtrnl ECG & 48 hr record scan stor w/r&i ordered Referral Ordered: SCREENING MAMMOGRAM (CAD) ordered Referral Ordered: EGD, FLEXIBLE, TRANSORAL, DIAGNOSTIC W/ COLLECTION OF SPECIMEN ordered Referral Ordered: COLONOSCOPY, FLEXIBLE, DIAGNOSTIC W/ COLLECTION OF SPECIMEN ordered Referral Ordered: Kelly SANCHEZ -*[facility] (related to Abnormal bowel movement) ordered Referral Referred To: Kelly SANCHEZ [address]
[facility] [address] [place], [place], [phone] Ordered: Referrals: *[facility]. Kelly SANCHEZ. Evaluation/diagnostic/treatment - Level 3 ordered Referral Ordered: SCREENING MAMMOGRAM (CAD) Bilateral breast ordered Referral Ordered: [facility] (related to Anxiety) ordered Referral Ordered: Referrals: Counseling/mental health services. Location: [facility]. Evaluate and treat - Level 2 ordered Future Order: Lab Order Lipid Pa gaston W/Reflex To Direct LDL ([id number]), Sent on: Sent Future Order: Lab Order Comprehe nsive Metabolic (CMP) ([id number]), Sent on: Sent Future Order: Lab Order CBC AUTO DIFF ([id number]), Ordered on: Ordered Future Order: Lab Order Comprehe nsive Metabolic (CMP) ([id number]), Ordered on: Ordered Future Order: Lab Order Vitamin B12 ([id number]), Ordered on: Ordered Future Order: Lab Order TSH with Reflex FT4 ([id number]), Ordered on: Ordered Future Order: Lab Order Vitamin D, 25-Hydroxy ([id number]), Ordered on: Ordered Future Order: Lab Order Iron/TIB C Panel ([id number]), Ordered on: Ordered History Of Present Illness Encounter Date Complaint History Of Prese nt Illness acute problem Chief complaint: Multiple complaints - URI symptoms, recurrent vomiting, passing out.Symptoms started 6 months ago This is a recurrent problem. Patient has chronic nausea/vomiting as well as bloatingHas seen GI - EGD and colonoscopy donePoor appetite - not eating wellDoes have her gallbladder stillURI symptoms:Having a lot of pressure including behind eyesUTI symptoms - urinary frequency and trouble emptying bladderPatient c/o pain everywhereVery distraught and tearfulNear syncopal episodesContext notable for stress. acute problem Chief complaint: Abdominal cramping with nausea/vomiting and diarrhea.Symptoms started 1 days ago This is a new onset problem. Patient has chronic bloating and abdominal crampingWorsening of symptoms in past 24 hours. Diarrhea comes and goes. Last BM was last night - patient states she poops fliesHas seen GI previously and well as EGD and ColonoscopyPatient has psychosis - believes she has parasites in skin/scalp and intestines but no pathology ever to confirm ER F/u Patient was seen in ER for delusional parasitosis. Patient has also been seen in our office multiple times for this as well. Today she presents with her mother in law. At first, she states she has had 3 episodes of sudden syncope. She states she has no warning and there is no pattern to these episodses. She states these episodes are always unwitnessed. She is unsure how long she is out. The other day she was making cereal and woke up on her kitchen floor with cereal spilt everywhere. She states this has happened 3 times in the last six months. She is also c/o n/v 5-6x/week. She states it doesn't matter what she eats, she will get nauseated and vomit. She denies any abdominal pain. She denies change in BMs. She feels better after she vomits. She denies any decrease in appetite or change in diet. She denies any weight loss.Patient again brings bags, pictures, hair samples, scrapings of dirt in tupperware with her. She again wants to discuss getting bit by a bot fly and developing a parasitic infection from this. I have referred her 3 dermatologists. She states one animal cop confirmed that she had parasites. However, this is not in the notes anywhere. This doctor then moved and there is no documentation of this visit pt refers to. I have referred her to ID but they will not see her. She sees psych but at this point she is not improving. According to ER records, she cut her scalp herself to get the parasites out and needed sutures. Medicare preventive A Health Ris k Assessment has been performed and reviewed. The patient has not felt depressed and has had interest and pleasure doing things recently. Functional Status: (Functional status has not changed) on 04/30/2024. SLUMS assessment completed, with a total score of 18, Dementia. The ''Up and Go'' test took less than 30 seconds andthe patient does not need help with activities of daily living. The patient is not at risk for falls. The patient has not fallen in the last year. The fall(s) did not result in injury. Patient's activity level is moderate. Patient never exercises. The patient has smoke detectors, carbon monoxide detectors, electric heating in the home. The patient does not have firearms in the home. There is no radon in the patient's home. Patient reports using a seatbelt in vehicles. Patient denies recent weight gain. Patient denies recent weight loss. The patient reports getting calcium from dietary sources. Patient reports not taking Vitamin D. Patient does not take a multivitamin. Patient does not take folic acid. Relevant history is positive for tobacco use and alcohol use. Relevant history is negative for passive vaping exposure and passive smoke exposure. Re-establish Patient is here to reestablish care. She is very scattered and I had a very hard time getting a history from her. She has several prescription pill bottles filled with bugs and debris. She states this is what drops in the sink when she washes her hair. She says that she got a bite behind her left ear while on a cruise and she has had worms, flies and parasites since that time. She has been seen by numerous PCPs, surgeons, psychiatrist, GI doctor since this started in 2019. None of which have ever seen a parasite or bug in a wound. She has had 2 CTs brain per patient that show growths on her brain from the parasites according to patient. I do not have these to review. Patient has also seen optometrists which per patient states her retina is detaching but they do not want her to have surgery bc they always have to clear her eyes of fibers and they do not know what these are from. Patient states one PCP uploaded pics of her wound to [facility] but [facility] hasn't gotten back with her. This PCP thought it was botfly infection. One animal cop referred her to [facility] but she has not been seen there yet and I am unsure why. Her most recent animal cop, Dr Yi wanted her to see infectious disease but pt cannot get seen bc she does not have official diagnosis. Bloating Onset: gradual. Severity level: mild-moderate. Duration: 12 to 14 months. Patient description is bloating and dull. It occurs monthly. The problem is worse. Denies aggravating factors. Denies relieving factors. Associated symptoms include bloating, constipation, diarrhea, heartburn, loose stools, nausea and stress. Pertinent negatives include abdominal distention, abdominal pain, alternating diarrhea/constipation, altered stool passage, anxiety, change in bowel habits, change in stool caliber, dyspepsia, fatigue, fever, flatulence, increased belching, milk/dairy intolerance, mucus in stool, sense of incomplete evacuation, small stools, stool urgency, straining with bowel movement, vomiting and weight loss. Additional information: Blood in BM's. Skin issues for 2-3 years and derm sending her to [place]. Worms and flies in her. Weight gain Depression This is a follow up visit. The patient reports functioning as somewhat difficult. The patient presents with compulsive thoughts, difficulty concentrating, fatigue, loss of appetite, racing thoughts and restlessness but denies depressed mood, diminished interest or pleasure or thoughts of or suicide. The patient's risk factors include medication. The patient's risk factors exclude relationship problems and social isolation. The Depression is aggravated by conflict or stress and lack of sleep. Additional information: Patient follows with psychiatry. Dealing with psychosisFormer alcohol and drug abuse - sober. Abnormal bowel movements Patient reports stool often loose/falls apart easily and has stringy white bitsPatient was worried about parasites - stool test for ova and parasites negativeLikely mucus Patient denies blood in stoolEating patterns varies Often poor appetite and nausea but no vomiting Hypertension Risk factors inc lude depression. Associated symptoms include fatigue. Pertinent negatives include chest pain, claudication and irregular heartbeat/palpitations. Additional information: Patient not taking Olmesartan nearly one year ago. Monitors at home and blood pressure almost always normal. Patient thinks improved since stopping alcohol acute problem Chief complaint: Fatigue. Patient having fatigue worsening in past 2 weeksPatient running fever typically at night, T max 100.9Had COVID test that was negative - 2nd week in NovemberShe is also having intestinal issues and possible worms in stoolHaving headaches and will feel cloudy - can't think straightStool is dark and falls apart easily/loose but not wateryPatient is worried about mold exposure from her homeShe is scheduled to see an manager event in FebruaryContext notable for stress but no ill contact at home/school, injury or travel. Telehealth Visit with luis e vazquez via video and audio utilizing [facility] program Restart OCP Patient would li ke to restart control pills to control her periodsShe has significant cramping and irregular periodsPatient reports vaping occasionally but willing to stop this completelyShe has no know history of cardiovascular disease or clotting disorder UTI (comments) Patient reports frequent UTI - nearly every month either after sexual intercourse or with menses Fatigue The patient pres ents with fatigue and nausea. The patient does not present with abdominal pain, cough, fever, lymphadenopathy, pharyngitis, rash or vomiting. Risk factors exclude exposure to sick contacts. The symptoms are aggravated by stress. The patient denies any chills, dyspnea, flank pain, loss of interest and weight gain. UTI Onset: 1 Day. Th e symptoms are recurring. Presenting/Initial symptoms include dysuria, frequency and hesitancy. Aggravating factors include sexual activity. Associated symptoms include dysuria, frequency, hesitancy and nausea. Pertinent negatives include fever, flank pain or vomiting. Anxiety The patient pres ents with compulsive thoughts, difficulty concentrating, excessive worry, fatigue, paranoia, racing thoughts and restlessness but denies depressed mood, diminished interest or pleasure or thoughts of or suicide. The patient's risk factors include financial worries, social isolation and unemployment. The patient's risk factors exclude relationship problems. Additional information: Patient has significant symptoms of anxiety and depression with psychotic features. She is unable to work due to her mood but insists her mood is due to her scalp condition instead of her mood creating behavior that is causing skin condition and hair loss. Patient has been referred to psychiatry. Rash The patient pres ents for Rash. Affected area(s) include scalp. The symptoms are associated with stress. The symptoms are not associated with contact with plants, recent medicines and recent travel. Additional information: Patient seen several times previously for this same issue and referred to dermatology. Most recently saw dermatology at [facility] on 08/29/20Reviewed office note. Punch biopsy done. 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 Patient continues to be in denial and believes she has maggots or parasites coming out of scalp at night. Anxiety (comments) Patient most recent prescribed Zyprexa but stopped this as she reports it did not help and just made her tiredPatient does have past alcohol and opioid abuse. Denies recent use Chronic Conditions *See Chronic Conditions HPI acute problem Chief complaint: Scalp lesion. Patient presents for ongoing scalp concern. She reports a lesion-like structure at vertex of scalp for over 1 year, seen our office with steroid form and TAC provided along with recommendation for Neutrogena T-Gel and no change. She has thankfully seen Dr. Chatman's office who advises, per patient, nothing truly present and currently have her on an antibiotic with recommendations to stop picking at the lesion and to see Psychiatry. She reports pressure over the site makes her keep touching, but she does wear a wrap over her head to help limit this at times. She reports this plus the pandemic has made her feel more like she has OCD on top of her chronic anxiety and is open to seeing Psychiatry. She is unable to leave her house at times as she feels the compulsion to clean her home continually and wash her hair often. Hypertension Pertinent negati ves include chest pain, dyspnea, fatigue, headache, hematuria, transient weakness and vomiting. Additional information: Patient has been out of medication Anxiety This is a follow up visit. The patient reports functioning as very difficult. The patient presents with anxious/fearful thoughts, depressed mood, difficulty concentrating, feelings of guilt, racing thoughts and restlessness but denies diminished interest or pleasure, fatigue, loss of appetite or thoughts of or suicide. The patient's risk factors include alcoholism, financial worries and unemployment. The patient denies any headache. Additional information: Patient recently lost her job. She was not taking Lexapro but had old prescription and took a few of thesePast over dose = alcohol and opioids. Patient denies recent alcoholPatient obsessive about scalp and hair and picking at scalpDermatology told patient she needs to get anxiety controlled. Rash The patient pres ents for Rash. Affected area(s) are scattered on the body including scalp and both hands. The patient describes the affected area(s) as itchy. The symptoms are associated with stress. The symptoms are not associated with contact with plants, new perfume, new skin soaps/lotions and recent travel. Aggravating factors include dry air. Associated symptoms include crusting, dry skin and pruritus. Pertinent negatives include bleeding, fatigue and painful rash. There are no other household members with similar symptoms. Additional information: Itching to scalp and flare of psoriasis; scratching scalp and getting secondary infection/folliculitis. Some lesions to hands. Functional Status Date Functional Assessmen t No Information Instructions Date Instruction Additional Infor jenn Take Cefdinir 300 mg twice a day for 10 days Related to Subacute sinusitis, unspecified location Small amount of leuk ocytes in urineUrine culture pending Related to UTI symptoms [place] dietTake anti- emetic, Ondansetron, before eating Related to Nausea and vomiting, unspecified vomiting type Follow up with psychiatry Relate d to Delusions of parasitosis Continue Ondansetron anti-nausea medicationSchedule ultrasound ordered in April by Dr. Graham Related to Persistent recurrent vomiting Checking blood tests Need to eat small, regular meals and consider protein supplement drink Related to Weight loss HTN is well controll ed. Always recommend monitoring BP and keep BP log. Continue current medications. 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 MA: 2D ECHO, EVENT M ONITOR, RUQ U/S, [facility] REFERRAL FOR SECOND OPINION ON PSYCH, DERM REFERRAL-DR STEVENS OR [facility] Related to Recurrent syncope Counseled on dietary changes need psych notes Related to Psyc hosis, unspecified psychosis type MA: REFER TO DR EASON AR ID, NEED ALL RECORDS FROM [facility] AND FROM PSYCH DR MATA Related to Alopecia Disease process No signs of infection Related to Urinary frequency Follow up with GI doctor Related to Abnormal bowel movement Blood pressure is no rmalMonitor blood pressure at home and call office if blood pressure >140/90 on 2 or more occasions Work on heart healthy diet - limit salt/sodium, limit saturated (animal) fats including dairy such as cheese, avoid fried foods Related to Hypertension, unspecified type as above Related to Pain in joints of left hand Work on healthy diet , getting plenty of sleep Related to Confusion Checking blood tests for possible rheumatoid arthritis and/or autoimmune disease Related to Pain of joint of both hands Checking stool test for possible parasitic infectionSuspect mucus or possible malabsorption of fiber/supplements Related to Abnormal stools Following with psychiatry Relate d to Psychosis, unspecified psychosis type Will check vitamin D level Relat ed to Vitamin D deficiency Printed order for fa sting labs - recommend fasting for 12 hours, may have water and black coffee or black tea, no creamer and no sweeteners Related to Screening for diabetes mellitus Restart contro l pillsThis can increase you risk for heart disease and stroke as well as blood clotsImportant to avoid smoking/vaping and keep blood pressure well controlled Related to Endometriosis Checking blood tests for anemia, iron levels, thyroid and B12 level Related to Chronic fatigue Urine test in office shows signs of infection and microscopic bloodDrink plenty of water/non caffeinated fluidsTake antibiotics, Cipro 500 mg twice a dayContinue to empty bladder before and after sexUrine culture sent - our office will call you next week with test results Related to Dysuria Dietary management e ducation, guidance, and counseling Related to Body mass index (BMI) 19 or less, adult Checking wound cultu re and blood tests todayContinue current medications from dermatology Related to Skin lesion of scalp Recommend follow up psychiatry R elated to Psychosis, unspecified psychosis type Dietary management e ducation, guidance, and counseling Related to Body mass index (BMI) 19 or less, adult We will reach out to assist with Psychiatry appointment. Related to Anxiety Stop touching lesion , use wrap if helps keep from contacting, try to only wash hair at most once a day, use TAC cream if helps. 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
--- OUTSIDE RECORDS SUMMARY | 2025-04-22 15:50 | XMS_ITS | Clinical Summary ---
Author Organization [facility] Address [address] [place] [address] Care Team Providers Care Hemodialysis Lab Technician Name Role Phone Unavailable Primary Care Provider Unavailabl e Source Comments [facility],non-owned Affiliates and Associated Physician Practices is amultiple site organization consisting of ambulatory clinics and hospital sitesin [place], [place], [place] and [place]. This disclosure is being madepursuant to the Care Everywhere program and may not contain all information available regarding this patient. Last updated 18.[facility] Allergies No known active allergies Medications * This document contains information received from the source organization and may not represent a complete record from that organization. * Be aware that medications may not be up to date on this document. Alwaysverify current medications with the patient. fluocinonide (LIDEX) 0.05 % solution Apply to affected area 2 times daily 60 mL 1 04/06/20 19 Active valACYclovir (VALTREX) 1 GM tablet 2 tablet po bid today and prn 24 tablet 04/06/20 19 Active ketoconazole (NIZORAL) 2 % shampooIndicat ions:Other seborrheic dermatitis Lather to affected area(s) in shower daily. Let sit at least 3-5 min before rinsing. 120 mL 3 06/04/20 19 Active mometasone (ELOCON) 0.1 % solution (lotion) Apply to affected area once daily 60 mL 2 06/12/20 19 Active Additional Information Patient not taking.Reported on 07/02/2024 mometasone (ELOCON) 0.1 % ointmentIndica tions:Other seborrheic dermatitis Apply to scalp once daily. 30 days supply. 45 g 3 06/20/20 19 Active Wound Dressings (SONAFINE) topical emulsion Apply to affected area four times daily for healing. 45 g 2 04/21/20 20 Active valACYclovir (VALTREX) 500 MG tabletIndicati ons:Oral herpes Take 1 (one) tablet by mouth once daily 30 day supply. 30 tablet 11 03/19/20 22 Active erythromycin (A/T/S; Erygel) 2 % gel 07/21/20 22 Active amitriptyline (Elavil) 10 MG tablet Take 1 (one) tablet by mouth every evening 30 tablet 1 08/10/20 22 Active ALPRAZolam (Xanax) 0.25 MG tablet Take 1 (one) tablet by mouth 3 times daily as needed for Anxiety 90 tablet 12/03/19 23 Active mupirocin (Bactroban) 2 % ointment APPLY TOPICALLY TO THE AFFECTED AREA DAILY 11/24/19 23 Active Ivermectin 1 %Indications:D elusions of parasitosis (HCC),Skin parasites Apply to affected area every 24 hours 45 g 3 12/27/19 23 Active metroNIDAZOLE, topical, (Metrocream) 0.75 % creamIndicatio ns:Delusions of parasitosis (HCC),Skin parasites APPLY TOPICALLY TO THE FACE ONCE DAILY 45 g 4 12/27/19 23 Active amphetamine-de xtroamphetamin e (Adderall) 20 MG tablet Take 1 (one) tablet by mouth 3 times daily 02/16/20 23 Active buprenorphine- naloxone (Suboxone Film) 8-2 MG strip DISSOLVE 1 FILM SUBLINGUALLY TWICE A DAY 01/20/20 23 Active clobetasol (Temovate) 0.05 % solutionIndica tions:Delusion s of parasitosis (HCC) Apply to affected areas on scalp twice daily. 30 day supply. 50 mL 2 03/09/20 23 Active metoprolol succinate XL 24hr (Toprol XL) 25 MG tabletIndicati ons:Elevated blood pressure reading without diagnosis of hypertension,I ntractable migraine with status migrainosus, unspecified migraine type Take 1 (one) tablet by mouth once daily 90 tablet 3 03/24/20 23 Active gabapentin (Neurontin) 600 MG tablet TAKE 1 TABLET BY MOUTH THREE TIMES DAILY 90 tablet 08/25/20 23 Active doxycycline hyclate 100 MG tabletIndicati ons:Ekbom's delusional parasitosis (HCC) TAKE 1 TABLET BY MOUTH EVERY DAY FOR 21 DAYS FOR ACNE 21 tablet 09/12/20 23 Active Additional Information Patient not taking.Reported on 07/02/2024 butalbital-deborah taminophen-caf feine (Fioricet) 50-325-40 MG tabletIndicati ons:Intractabl e migraine with status migrainosus, unspecified migraine type TAKE 1 TABLET BY MOUTH EVERY 4 HOURS NEEDED FOR HEADACHE. DO NOT EXCEED 3 GM OF ACETAMINOPHEN(T YLENOL) DAILY 20 tablet 5 02/29/20 24 Active acyclovir (Zovirax) 400 MG tablet Take 1 (one) tablet by mouth 2 times daily For daily suppression, take one pill twice daily. If you have an outbreak, increase to one pill three times a day for10 days. 180 tablet 02/29/20 24 Active DULoxetine (Cymbalta) 20 MG capsule Take 1 (one) capsule by mouth once daily 04/27/20 24 Active estradiol (Climara) 0.1 MG/24HR patch Apply 1 (one) patch to skin every 7 days 11/09/20 23 Active ketoconazole (Nizoral) 2 % shampoo Apply to wet hair, leave on for 3 minutes, then rinse; three times weekly. 30 days supply 120 mL 5 06/18/20 24 Active cephalexin (Keflex) 500 MG capsule Take 1 (one) capsule by mouth 3 times daily 28 capsule 07/02/20 24 Active risperiDONE (RisperDAL) 1 MG tablet Take 2 tabs PO qhs 60 tablet 08/16/20 24 Active hydrOXYzine HCl (Atarax) 10 MG tabletIndicati ons:Delusions of parasitosis (HCC) TAKE 1 TO 3 TABLETS BY MOUTH AT NIGHT NEEDED FOR ITCHING 30 tablet 09/24/20 24 Active mupirocin (Bactroban) 2 % ointment APPLY TO OPEN SORES ON NECK AND SCALP TWICE DAILY 30 g 09/24/20 24 Active clobetasol (Temovate) 0.05 % creamIndicatio ns:Dysesthesia of multiple sites APPLY TO AFFECTED AREA ON SCALP TWICE DAILY 45 g 09/24/20 24 Active hydrOXYzine HCl (Atarax) 25 MG tablet Take 1 (one) tablet by mouth 4 times daily as needed for Itching 30 tablet 01/05/20 25 Active famotidine (Pepcid) 20 MG tablet Take 1 (one) tablet by mouth every 12 hours 10 tablet 01/05/20 25 Active pramoxine-radha mine (Caladryl) lotion Apply to affected area 3 times daily as needed for Itching 177 mL 01/05/20 25 Active ondansetron, disintegrating , (Zofran ODT) 4 MG tabletIndicati ons:Nausea and vomiting, unspecified vomiting type TAKE 1 TABLET BY MOUTH EVERY 8 HOURS, ALLOW TABLET TO DISSOLVE ON THE TONGUE 270 tablet 3 04/19/20 25 Active ondansetron, disintegrating , (Zofran ODT) 4 MG tabletIndicati ons:Nausea and vomiting, unspecified vomiting type TAKE 1 TABLET BY MOUTH EVERY 8 HOURS, ALLOW TABLET TO DISSOLVE ON THE TONGUE 270 tablet 3 03/06/20 24 025 Discontinued Active Problems Problem Noted Date Diagnosed Date Chemical burn of skin 07/12/2024 Dysesthesia of multiple sites 06/18/2024 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 Depression, unspecified 04/21/2022 ADHD (attention deficit hyperactivity disorder) 04/21/2022 Chronic fatigue 03/16/2021 05/05/2023 Anxiety 03/16/2021 05/05/2023 Neurotic excoriations 06/30/2020 Other pruritus 06/30/2020 Superficial bacterial infection of skin 06/30/20 20 Endometriosis 02/20/2018 05/05/2023 Encounters Date Type Department Care Team Description 04/19/2025 Refill [facility] - Neurology [address] [place] [address] [place] [address] Yudith Jane APRN-JIM Refill Request from Last 3 Months Family History Medical [...] Comments Blood Pressure 162/106 01/04/2025 10:50 PM LEGAL DOCUMENT SPECIALIST Pulse 98 01/04/2025 9:58 PM LEGAL DOCUMENT SPECIALIST Temperature 36.1 C (97 F) 01/04/2025 9:58 PM LEGAL DOCUMENT SPECIALIST Respiratory Rate 20 01/04/2025 9:58 PM LEGAL DOCUMENT SPECIALIST Oxygen Saturation 100% 01/04/2025 10:50 PM LEGAL DOCUMENT SPECIALIST Inhaled Oxygen Concentration - - Weight 65.8 kg (145 lb) 01/04/2025 9:58 PM LEGAL DOCUMENT SPECIALIST Height 167.6 cm (5' 6) 01/04/2025 9:58 PM LEGAL DOCUMENT SPECIALIST Body Mass Index 23.4 01/04/2025 9:58 PM LEGAL DOCUMENT SPECIALIST Plan of Treatment Health Maintenance Due Date Last Done Comments COLOGUARD (AGES 45-75) - COLON CA SCREENING 1974 CT COLONOGRAPHY - COLON CA SCREENING 1974 FIT - COLON CA SCREENING 1974 FLEX SIG - COLON CA SCREENING 1974 MEDICARE AWV 12 MONTHS 1974 PAP SMEAR 1974 HIV SCREENING 1989 HEPATITIS C SCREENING 07/27/1992 DTAP/TDAP/TD VACCINES (1 - Tdap) 1993 HEPATITIS B VACCINE (1 of 3 - 19+ 3-dose series) 1993 COVID-19 VACCINE (3 - 2023- season) 2024 04/15/2021, 03/18/2021 PNEUMOCOCCAL VACCINE 50+ (1 of 1 - PCV) 2024 ZOSTER VACCINE (1 of 2) 2024 MAMMOGRAM 09/15/2024 09/15/2022, 12/2021, 09/15/2022 DEPRESSION SCREENING 11/14/2024 08/25/2022, 08/20/2022, 08/10/2022, Additional history exists INFLUENZA VACCINE (Season Ended) 2025 LIPID TESTING 08/12/2027 08/12/2022, 01/11/2018 COLON MONITORING 09/10/2031 09/10/2021 COLONOSCOPY - COLON CA SCREENING 09/10/2031 09/10/2021, [...] Procedure Name Priority Date/Time Associated Diagnosis Comments MAMMOGRAM Routine 09/15/2022 LIPID PROFILE Routine 08/12/2022 5:20 PM CDT Recent weight gain from Last 3 Months or Most Recently Relevant to Health Maintenance Results * MAMMOGRAM (09/15/2022) Anatomical Region Laterality Modality Other us Historical Provider MD SCANNING ONLY Final Res [...] factors. LDL-C is now calculated using the Jessie calculation, which is a validated novel method providing better accuracy than the Friedewald equation in the estimation of LDL-C. Erasmo CHRIS et al. ROBERTO. 2013;310(19): 7447-6743 (http://education.Cooliris.AdGent Digital/faq/GOU458) CHOL/HDLC RATIO 1.8 <5.0 (calc) [facility] Non HDL Cholesterol 139(H) <130 mg/dL (calc) [facility] Comment: For patients with diabetes plus 1 major ASCVD risk factor, treating to a non-HDL-C goal of <100 mg/dL (LDL-C of <70 mg/dL) is considered a therapeutic option. Test Performed at: [facility] [address] [place] [address] KAMINI PERLA DO,MPH Blood BLOOD SPECIMEN / Unknown 08/12/2022 5:20 PM CDT 08/12/2022 5:22 PM CDT Logan Kwon PA-C LAB - CHEMISTRY ORDERABLES Final Result [facility] [id number] [place] [address] from Last 3 Months or Most Recently Relevant to Health Maintenance Insurance MEDICARE
--- OUTSIDE RECORDS SUMMARY | 2025-04-22 15:50 | XMS_ITS | Clinical Summary ---
Author Organization [address] Address [address] [place] [address] Care Team Providers Care Breaker Boss Name Role Phone Claudia Graham DO Primary Care Provider [phone] Allergies Active Allergy Reactions Criticality Noted Date Comments House Dust Sneezing Low 03/07/2023 Mold Extracts Unknown 03/07/2023 Medications lisinopriL (PRINIVIL,ZESTRIL) 10 mg tabletIndications: hypertension Take 1 tablet (10 mg total) by mouth small business sales representative before breakfast 01/15/20 18 Active Lo Loestrin Fe 1 mg-10 mcg (24)/10 mcg (2) tabletIndications: Contraception Take 1 tablet by mouth small business sales representative before breakfast 10/31/20 20 Active omeprazole (PriLOSEC) 40 mg capsuleIndications :Treatment of Non-Bleeding Gastric Disorder Take 1 capsule (40 mg total) by mouth small business sales representative before breakfast 08/21/20 21 Active metroNIDAZOLE (METROCREAM) [...] as needed for heartburn or indigestion 12/25/19 22 Active erythromycin with ethanoL (EMGEL) 2 % [...] (10 mg total) by mouth nightly 08/20/20 22 Active mupirocin (BACTROBAN) 2 % ointment APPLY [...] topically 2 (two) times a week 12/27/19 23 Active acetaminophen (TYLENOL) 500 mg tablet Take 1 tablet (500 mg total) by mouth every 6 (six) hours as needed for pain 30 tablet 05/04/20 23 Active ibuprofen (ADVIL,MOTRIN) 600 mg tablet [...] Application topically daily 45 g 11 05/17/20 23 Active Active Problems Problem Noted Date Diagnosed Date Mass of buttock 02/23/2023 Overview (02/23/2023): Added automatically from request for surgery [id number] Blurred vision, bilateral 09/07/2022 Bilateral retinal lattice [...] 10:40 AM CDT Height 165.1 cm (5' 5) 03/07/2023 10:40 AM CDT Body Mass Index [...] Breast Cancer Screening-Mammogram 09/15/2023 022 Covid-19 Vaccine (3 - season) 07/15/202412/2020, 03/18/2021 Zoster Vaccine (1 of 2) 2024 Influenza Vaccine (Season Ended) 2025 Hepatitis C Screening Completed 12/18/2020 Procedures Procedure Name Priority Date/Time Associated Diagnosis Comments SCREENING MAMMOGRAM BILATERAL W ALFONZO W IMPLANTS Schedule Routine, Read Routine (OP Routine) 09/15/2022 4:26 PM CDT Screening mammogram, encounter for HEPATITIS C ANTIBODY Routine 12/18/2020 5:21 PM FAMILY CONSUMER SCIENCE FCS TEACHER Pruritus from Last 3 Months or Most [...] * Hepatitis C antibody (12/18/2020 5:21 PM FAMILY CONSUMER SCIENCE FCS TEACHER) Hep C Ab NON-REACTI VE NON-REACT JUAN JOSE [facility] SIGNAL TO CUT-OFF 0.01 <1.00 [facility] Comment: HCV antibody was non-reactive. There is no laboratory evidence of HCV infection. In most cases, no further action is required. However, if recent HCV exposure is suspected, a test for HCV RNA (test code 98389) is suggested. For additional information please refer to http://education.Related Content Database (RCDb).ArtSquare/faq/KYP37a1 (This link is being provided for informational/ educational purposes only.) Blood specimen (specimen) 12/18/2020 5:21 PM FAMILY CONSUMER SCIENCE FCS TEACHER 12/18/2020 5:22 PM FAMILY CONSUMER SCIENCE FCS TEACHER Isabel Medina MD LAB MICROBIOLOGY - GENERAL ORDERABLES Final Result [facility] [id number] [address] [facility] [place] [address] from Last 3 Months or Most Recently Relevant to Health Maintenance Insurance [facility] MEDICARE Care Teams Breaker Boss Relationship Specialty Start Date End Date Claudia Graham, [address] [id number] PCP - General Family Medicine 03/02/24
--- OUTSIDE RECORDS SUMMARY | 2025-04-22 15:50 | XMS_ITS | Referral Summary ---
Author Organization [address] Address [address] [place] [address] Care Team Providers Care Particle Board Supervisor Name Role Phone Claudia Graham DO Primary Care Provider [phone]- [phone] Allergies Active Allergy Reactions Criticality Noted Date Comments House Dust Sneezing Low 03/07/2023 Mold Extracts Unknown 03/07/2023 Medications lisinopriL (PRINIVIL,ZESTRIL) 10 mg tabletIndications: hypertension Take 1 tablet (10 mg total) by mouth early childhood worker before breakfast 01/15/20 18 Active Lo Loestrin Fe 1 mg-10 mcg (24)/10 mcg (2) tabletIndications: Contraception Take 1 tablet by mouth early childhood worker before breakfast 10/31/20 20 Active omeprazole (PriLOSEC) 40 mg capsuleIndications :Treatment of Non-Bleeding Gastric Disorder Take 1 capsule (40 mg total) by mouth early childhood worker before breakfast 08/21/20 21 Active metroNIDAZOLE (METROCREAM) [...] (02/23/2023): Added automatically from request for surgery [id number] Blurred vision, bilateral 09/07/2022 Bilateral retinal lattice [...] HEPATITIS C ANTIBODY Routine 12/18/2020 5:21 PM BUILDING ANALYST/SUPERVISOR Pruritus from Last 3 Months or Most [...] * Hepatitis C antibody (12/18/2020 5:21 PM BUILDING ANALYST/SUPERVISOR) Hep C Ab NON-REACTI VE NON-REACT JUAN JOSE [facility] SIGNAL TO CUT-OFF 0.01 <1.00 [facility] Comment: HCV antibody was non-reactive. There is no laboratory evidence of HCV infection. In most cases, no further action is required. However, if recent HCV exposure is suspected, a test for HCV RNA (test code 54448) is suggested. For additional information please refer to http://education.Nanochip/faq/HUB40j7 (This link is being provided for informational/ educational purposes only.) Blood specimen (specimen) 12/18/2020 5:21 PM BUILDING ANALYST/SUPERVISOR 12/18/2020 5:22 PM BUILDING ANALYST/SUPERVISOR Isabel Medina MD LAB MICROBIOLOGY - GENERAL ORDERABLES Final Result [facility] [address] [place] [address] from Last 3 Months or Most Recently Relevant to Health Maintenance Insurance [facility] CHOICE PLUS [facility] MEDICARE Care Teams Particle Board Supervisor Relationship Specialty Start Date End Date Claudia Graham DO [address] [place] [id number] PCP - General Family Medicine 03/02/24
--- NOTE | 2025-04-22 15:52 | PC.NURSE ---
Patient ambulatory with steady gait and in no obvious distress out of ED stating, I'm going to try somewhere else.
--- OUTSIDE RECORDS SUMMARY | 2025-04-22 16:33 | XMS_ITS | Continuity of Care Document ---
Author Organization [facility] Address [address] [place] [address] Phone Care Team Providers Care Manager Grant Name Role Phone Bear Zimmerman DPM Unavailable [...] OFFICE/OUTPAT IENT VISIT NEW [facility] , [address], [place], [address], tel:[phone] [facility] left ankle (chief complaint) ankle sprain Erasmo Sifuentes. [address], [place], [place], [id number]. tel: [phone] Referring Provider: Claudia Kuhn, [address], [place], [address] . tel:[phone] Family History Family Member Type Diagnosis Age [...]
--- OUTSIDE RECORDS SUMMARY | 2025-04-22 16:33 | XMS_ITS | Referral Summary ---
Author Organization [address] Address [address] [place] [id number] Care Team Providers Care Fbi Sharpshooter Name Role Phone Claudia Graham DO Primary Care Provider +1- [phone] Allergies Active Allergy Reactions Criticality Noted Date [...] (02/23/2023): Added automatically from request for surgery [id number] Blurred vision, bilateral 09/07/2022 Bilateral retinal lattice [...] HEPATITIS C ANTIBODY Routine 12/18/2020 5:21 PM INSULATING MACHINE OPERATOR Pruritus from Last 3 Months or Most [...] * Hepatitis C antibody (12/18/2020 5:21 PM INSULATING MACHINE OPERATOR) Hep C Ab NON-REACTI VE NON-REACT JUAN JOSE [facility] SIGNAL TO CUT-OFF 0.01 <1.00 [facility] Comment: HCV antibody was non-reactive. There is no laboratory evidence of HCV infection. In most cases, no further action is required. However, if recent HCV exposure is suspected, a test for HCV RNA (test code 81254) is suggested. For additional information please refer to http://education.Signadyne/faq/NAH53r8 (This link is being provided for informational/ educational purposes only.) Blood specimen (specimen) 12/18/2020 5:21 PM INSULATING MACHINE OPERATOR 12/18/2020 5:22 PM INSULATING MACHINE OPERATOR Isabel Medina MD LAB MICROBIOLOGY - GENERAL ORDERABLES Final Result [facility] [address] [place] [address] from Last 3 Months or Most Recently Relevant to Health Maintenance Insurance [facility] CHOICE PLUS [facility] MEDICARE Care Teams Fbi Sharpshooter Relationship Specialty Start Date End Date Claudia Graham DO [address] [place] [id number] PCP - General Family Medicine 03/02/24
--- OUTSIDE RECORDS SUMMARY | 2025-04-22 16:33 | XMS_ITS | Clinical Summary ---
Author Organization [facility] Address [address] [place] [address] Care Team Providers Care Clay Pigeon Setter Name Role Phone Unavailable Primary Care Provider Unavailabl e Source Comments [facility],non-owned Affiliates and Associated Physician Practices is amultiple site organization consisting of ambulatory clinics and hospital sitesin [place], [place] and [place]. This disclosure is being madepursuant to the Care Everywhere program and may not contain all information available regarding this patient. Last updated 18.[facility] Allergies No known active allergies Medications * [...] 04/19/2025 Refill [facility] - [facility]rology [address] [place] [address] [place] [address] Yudith Jane APRN-JIM Refill Request [...] Comments Blood Pressure 162/106 01/04/2025 10:50 PM PIVOT MAKER Pulse 98 01/04/2025 9:58 PM PIVOT MAKER Temperature 36.1 C (97 F) 01/04/2025 9:58 PM PIVOT MAKER Respiratory Rate 20 01/04/2025 9:58 PM PIVOT MAKER Oxygen Saturation 100% 01/04/2025 10:50 PM PIVOT MAKER Inhaled Oxygen Concentration - - Weight 65.8 kg (145 lb) 01/04/2025 9:58 PM PIVOT MAKER Height 167.6 cm (5' 6) 01/04/2025 9:58 PM PIVOT MAKER Body Mass Index 23.4 01/04/2025 9:58 PM PIVOT MAKER Plan of Treatment Health Maintenance Due Date [...] LDL-C. Erasmo CHRIS et al. ROBERTO. 2013;310(19): 2048-9075 (http://education.NexImmune.[employer]/faq/MHW702) CHOL/HDLC RATIO 1.8 <5.0 (calc) [facility] Non HDL Cholesterol 139(H) <130 mg/dL (calc) [facility] Comment: For patients with diabetes plus 1 major ASCVD risk factor, treating to a non-HDL-C goal of <100 mg/dL (LDL-C of <70 mg/dL) is considered a therapeutic option. Test Performed at: [facility] [address] [place] [address] KAMINI PERLA DO,MPH Blood BLOOD SPECIMEN / Unknown 08/12/2022 5:20 PM CDT 08/12/2022 5:22 PM CDT Logan Kwon PA-C LAB - CHEMISTRY ORDERABLES Final Result [facility] [address] [place] [address] from Last 3 Months or Most Recently Relevant to Health Maintenance Insurance MEDICARE
--- OUTSIDE RECORDS SUMMARY | 2025-04-22 16:33 | XMS_ITS | Clinical Summary ---
Author Organization [address] Address [address] [place] [address] Care Team Providers Care Rubber Factory Worker Name Role Phone Claudia Graham DO Primary Care Provider +1- [phone] Allergies Active Allergy Reactions Criticality Noted Date Comments House Dust Sneezing Low 03/07/2023 Mold Extracts Unknown 03/07/2023 Medications lisinopriL (PRINIVIL,ZESTRIL) 10 mg tabletIndications: hypertension Take 1 tablet (10 mg total) by mouth social services assistant before breakfast 01/15/20 18 Active Lo Loestrin Fe 1 mg-10 mcg (24)/10 mcg (2) tabletIndications: Contraception Take 1 tablet by mouth social services assistant before breakfast 10/31/20 20 Active omeprazole (PriLOSEC) 40 mg capsuleIndications :Treatment of Non-Bleeding Gastric Disorder Take 1 capsule (40 mg total) by mouth social services assistant before breakfast 08/21/20 21 Active metroNIDAZOLE [...] (02/23/2023): Added automatically from request for surgery [id number] Blurred vision, bilateral 09/07/2022 Bilateral retinal lattice [...] HEPATITIS C ANTIBODY Routine 12/18/2020 5:21 PM ORTHODONTIC TECHNICIAN Pruritus from Last 3 Months or Most [...] * Hepatitis C antibody (12/18/2020 5:21 PM ORTHODONTIC TECHNICIAN) Hep C Ab NON-REACTI VE NON-REACT JUAN JOSE [facility] SIGNAL TO CUT-OFF 0.01 <1.00 [facility] Comment: HCV antibody was non-reactive. There is no laboratory evidence of HCV infection. In most cases, no further action is required. However, if recent HCV exposure is suspected, a test for HCV RNA (test code 77456) is suggested. For additional information please refer to http://education.KeepFu.[employer]/faq/JLV27a5 (This link is being provided for informational/ educational purposes only.) Blood specimen (specimen) 12/18/2020 5:21 PM ORTHODONTIC TECHNICIAN 12/18/2020 5:22 PM ORTHODONTIC TECHNICIAN Isabel Medina MD LAB MICROBIOLOGY - GENERAL ORDERABLES Final Result [facility] [address] [facility] [place] [address] from Last 3 Months or Most Recently Relevant to Health Maintenance Insurance [facility] CHOICE PLUS [facility] HMO/PPO Address: [address] [address] [place] [address] [facility]LY [facility] MEDICARE Care Teams Rubber Factory Worker Relationship Specialty Start Date End Date Claudia Graham, [address] [place] [phone] PCP - General Family Medicine 03/02/24
--- OUTSIDE RECORDS SUMMARY | 2025-04-22 16:34 | XMS_ITS | Continuity of Care Document ---
Author Organization [employer] Address [address] [place] [address] Phone Care Team Providers Care Risk Analyst Name Role Phone Claudia Graham DO Unavailable [...] DIPSTICK (UA) - Office Lab O OFFICE [id number] SYST BP >= 140 MM HG6 IT DIAST BP >= 90 MM HG Pt inelig neg scrn depres CBC, INC PLATELETS AND DIFFERENTIAL COMPREHEN METABOLIC PANEL CMP IRON (FE), TOTAL TIBC, & % SATURATION THYROID STIMULATION HORMONE(TSH) 2023 VITAMIN B12 (SERUM) ROUTINE VENIPUNCTURE OFFICE [id number]-KAR-[id number] SYST BP LT 130 MM HG DIAST BP 80-89 MM HG Pt inelig neg scrn crys SCREENING MAMMOGRAM (CAD) OFFICE [id number]-TZY-YLTXIXDC PPPS, initial visit SYST BP LT 130 MM HG DIAST BP < 80 MM HG OFFICE [id number]-[id number] SYST BP LT 130 MM HG DIAST BP < 80 MM HG COLONOSCOPY AND BIOPSY UPPER GI ENDOSCOPY BIOPSY OFFICE OEBPO-TDU-RCVA-MED BODY MASS INDEX DOCD SYST BP GE 130 - 139MM HG DIAST BP 80-89 MM HG Pt inelig neg scrn depres URINALYSIS, DIPSTICK (UA) - Office Lab F OFFICE AERZZ-QVL-BAWJZSHP BODY MASS INDEX DOCD SYST BP LT 130 MM HG DIAST BP 80-89 MM HG OFFICE BTAZZ-SYB-TLYPAVDT Pt inelig neg scrn depres URINALYSIS, DIPSTICK (UA) - Office Lab D OFFICE SNAYP-ENB-ARAZDKFW BODY MASS INDEX DOCD SYST BP GE 130 - 139MM HG DIAST BP < 80 MM HG Pt inelig neg scrn depres ROUTINE VENIPUNCTURE OFFICE UAHHW-DDZ-VGGDGUAF BODY MASS INDEX DOCD SYST BP LT 130 MM HG DIAST BP 80-89 MM HG OFFICE CVNAN-GDS-IRESVMRW Brief Emotional/Behavioral A ssessment, With Scoring/Doct, Per St[facility] Instrument Clin depression screen doc THYROID STIMULATION HORMONE(TSH) 2019 ROUTINE VENIPUNCTURE OFFICE MWUVD-ZNR-LXEWNMLY BODY MASS INDEX DOCD SYST BP >= [...] Diagnoses Date Provider Providers Copied on Encounter [facility], [address], [place], [place], [address] , tel: [phone] [facility] No Information 5 Santos Taylor. [address], [place], [place], [address] , [place]. tel: [phone] [facility], [address], [place], [place], [address] , tel: [phone] [facility] Chest tightness 4 Santos Taylor. [address], [place], [address] , [place]. tel: [phone] [facility], [address], [place], [place], [address] , [place] tel: [phone] [facility] No Information 4 Santos Taylor. [address], [place], [place], [address] , [place]. tel: [phone] [facility], [address], [place], [place], [address] , [place] tel: [phone] [facility] No Information 4 Geovanny Steven. [address] [place] [address], [id number] , [place]. tel: [phone] Referring Provider: Claudia Graham, [address] [facility] [address], [place], [address] . tel:[phone] OFFICE HICIP-TJB-YT [facility], [address], [place], [place], [address] , tel: [phone] [facility] acute problem (chief complaint) UTI symptomsNausea and vomiting, unspecified vomiting typeSubacute sinusitis, unspecified location 4 Marc Bro. [address], [place], [place], [address] , [place]. tel: [phone] Referring Provider: [address] [facility] [address], [place], [address] . tel:[phone] OFFICE OFQVP-ZFI-HP [facility], [address], [place], [place], [address] , tel: [phone] [facility] acute problem (chief complaint) Weight lossDelusions of parasitosisPersi stent recurrent vomiting 4 Marc Bro. [address], [place], [place], [address] , [place]. tel: [phone] Referring Provider: Claudia Graham, [address] [facility] [address], [place], [address] . tel:[phone] OFFICE GMMVM-PQW-PP [facility], [address], [place], [place], [address] , [place] tel: [phone] [facility] Medicare preventive (chief complaint)ER F/u (chief complaint) Primary hypertensionEnco unter for screening mammogram for malignant neoplasm of breastRecurrent syncopePersisten t recurrent vomitingEkbom's delusional parasitosis 4 Santos Taylor. [address], [place], [place], [address] , [place]. tel: [phone] Referring Provider: [address] [facility] [address], [place], [address] . tel:[phone] [facility] [address], [place], [place], [address] , [place] tel: [phone] [facility] Re-establish (chief complaint) Encounter for screening mammogram for malignant neoplasm of breastAlopeciaPs ychosis, unspecified psychosis type 4 Santos Taylor. [address], [place], [place], [address] , [place]. tel: [phone] Referring Provider: Claudia Graham, [address] [facility] [address], [place], [address] . tel:[phone] [facility], [address], [place], [place], [address] , tel: [phone] [facility] No Information 1 Pam Sajidul. [address] [place] [address], [address], [address] , . tel: [phone] Referring Provider: Claudia Graham, [address] [facility] [address], [place], [address] . tel:[phone] [facility], [address], [place], [place], [address] , tel: [phone] [facility] No Information 1 Pam Sajidul. [address] [place] [address], [address], [address] , . tel: [phone] OFFICE LVAUF-GUG-DI MP-MED [facility], [address], [place], [place], [address] , tel: [phone] [facility] Bloating (chief complaint)Janusz ght gain (chief complaint) Abnormal bowel movementAbdomina l bloatingFHx: colon cancerBlood in stoolHeartburn 1 Pam Sajidul. [address] [place] [address], [address], [address] , . tel: [phone] Referring Provider: Claudia Graham, [address] [facility] [address], [place], [address] . tel:[phone] OFFICE QFKVU-UMC-FD PANDED [facility], [address], [place], [place], [address] , tel: [phone] [facility] Hypertension (chief complaint)Dep ression (chief complaint)Abn ormal bowel movements (chief complaint) Hypertension, unspecified typeEncntr screen mammogram for malignant neoplasm of breastUrinary frequencyAbnorma l bowel movement 1 Marc Bro. [address], [place], [place], [address] , [place]. [phone] Referring Provider: [address] [facility] [address], [place], [address] . tel:[phone] OFFICE MDSMT-TVN-LL PANDED [facility], [address], [place], [place], [address] , tel: [phone] [facility] Telehealth (chief complaint)acu te problem (chief complaint) Abnormal stoolsPain of joint of both handsPain in joints of left handConfusionPsy chosis, unspecified psychosis type 1 Marc Bro. [address], [place], [place], [address] , [place]. tel:[phone] Referring Provider: [address] [facility] [address], [place], [address] . tel:[phone] OFFICE TVANG-LXQ-IJ [facility], [address], [place], [place], [address] , [place] tel: [phone] [facility] UTI (chief complaint)Res tart OCP (chief complaint)Fat igue (chief complaint) Body mass index (BMI) 19.9 or less, adultDysuriaChro joan fatigueScreening for diabetes mellitusVitamin D deficiencyEndome triosisBody mass index (BMI) 20.0-20.9, adult 0 Marc Bro. [address], [place], [place], [address] , [place]. [phone] Referring Provider: [address] [facility] [address], [place], [address] . tel:[phone] OFFICE FXQQZ-DRV-RP [facility], [address], [place], [place], [address] , tel: [phone] [facility] Rash (chief complaint)Anx iety (chief complaint) Body mass index (BMI) 19.9 or less, adultEncntr screen mammogram for malignant neoplasm of breastPsychosis, unspecified psychosis typeSkin lesion of scalpBody mass index (BMI) 20.0-20.9, adult Sep- 0 Marc Adali. [address], [place], [place], [address] , [place]. tel: [phone] Referring Provider: Claudia Graham, [address], [place], [address] . tel:[phone] [facility], [address], [place], [place], [address] , [place] tel: [phone] Care Management Anxiety 0 Jen Patel. [address], [place], [place], [address] , [place]. tel: [phone] OFFICE AHKHI-RZT-ZD PANDED [facility], [address], [place], [place], [address] , [place] tel: [phone] [facility] acute problem (chief complaint)Chr onic Conditions (chief complaint) Scalp lesionAnxietyFam ade history of thyroid diseaseScreening cholesterol level 0 Jen Amanda. [address], [place], [place], [address] , [place]. tel: [phone] Referring Provider: Claudia Graham, [address], [place], [address] . tel:[phone] OFFICE GEBQF-HGO-YB [facility], [address], [place], [place], [address] , [place] tel: [phone] [facility] Medicine Anxiety (chief complaint)Jared h (chief complaint)Hyp ertension (chief complaint) Body mass index (BMI) 19.9 or less, adultAnxietyEsse ntial hypertensionPlaq ue psoriasisBody mass index (BMI) 20.0-20.9, adult Nov- 0 Marc Adali. [address], [place], [place], [address] , [place]. tel: [phone] Referring Provider: [address], [place], [address] . tel:[phone] [facility], [address], [place], [place], [address] , tel: [phone] [facility] No Information 9 Johanna Carbajal. [address], [place], [place], [address] , . tel: [phone] Referring Provider: Claudia Graham, [address] [facility] [address], [place], [address] . tel:[phone] [facility], [address], [place], [place], [address] , tel: [phone] [facility] Alcohol abuse with alcohol-induced disorderOpioid abuse with intoxication with complication 8 Santos Taylor. [address], [place], [address] , . tel: [phone] Referring Provider: Claudia Graham, [address] [facility] [address], [place], [address] . tel:[phone] [facility], [address], [place], [place], [address] , tel: [phone] [facility] No Information 8 Santos Taylor. [address], [place], [address] , . tel: [phone] [facility], [address], [place], [place], [address] , tel: [phone] [facility] No Information 8 Santos Taylor. [address], [place], [place], [address] , [place]. tel: [phone] Family History Family Member Type Diagnosis Age [...] Covered democrat ID Authoriza tion(s) MEDICARE MB [id number] MEDICARE [id number] Social History Type Description Quantity Date Captured [...] guidance, and counseling completed Referral Referred To: [address] [place] [address], [phone] Ordered: CT angiography chest w/contrast/noncontrast ordered Referral Referred To: [address] [place] [address], [phone] Ordered: Stress echo ordered Referral Referred To: [address] [place] [address], [phone] Ordered: Ultrasound of epigastrium and right upper quadrant of abdomen ordered Referral Ordered: Electrocardiogram with interpretation ordered Referral Referred To: [address] [place] [address]
[address] [place] [address], [phone] Ordered: 2D echocardiography ordered Referral Referred To: [address] [place] [address], [id number] [phone] Ordered: [place] RUQ abdomen ordered Referral Referred To: [address] [place] [address]
[address] [place] [address], [phone] Ordered: Xtrnl ECG & 48 hr record scan stor w/r&i ordered Referral Ordered: SCREENING MAMMOGRAM (CAD) ordered Referral Ordered: EGD, FLEXIBLE, TRANSORAL, DIAGNOSTIC W/ COLLECTION OF SPECIMEN ordered Referral Ordered: COLONOSCOPY, FLEXIBLE, DIAGNOSTIC W/ COLLECTION OF SPECIMEN ordered Referral Ordered: Kelly SANCHEZ -*[facility] (related to Abnormal bowel movement) ordered Referral Referred To: Kelly SANCHEZ [address]
[facility] [address] [place], [place], [phone] Ordered: Referrals: *[facility]. Kelly SANCHEZ. Evaluation/diagnostic/treatment - Level 3 ordered Referral Ordered: SCREENING MAMMOGRAM (CAD) Bilateral breast ordered Referral Ordered: [facility] (related to Anxiety) ordered Referral Ordered: Referrals: Counseling/mental health services. Location: [facility]. Evaluate and treat - Level 2 ordered Future Order: Lab Order Lipid Pa gaston W/Reflex To Direct LDL ([id number]), Sent on: Sent Future Order: Lab Order Comprehe nsive Metabolic (CMP) ([id number]), Sent on: Sent Future Order: Lab Order CBC AUTO DIFF ([id number]), Ordered on: Ordered Future Order: Lab Order Comprehe nsive Metabolic (CMP) ([id number]), Ordered on: Ordered Future Order: Lab Order Vitamin B12 ([id number]), Ordered on: Ordered Future Order: Lab Order TSH with Reflex FT4 ([id number]), Ordered on: Ordered Future Order: Lab Order Vitamin D, 25-Hydroxy ([id number]), Ordered on: Ordered Future Order: Lab Order Iron/TIB C Panel ([id number]), Ordered on: Ordered History Of Present Illness [...] referred her 3 dermatologists. She states one aerospace stress engineer confirmed that she had parasites. However, this [...] PCP uploaded pics of her wound to [facility] but [facility] hasn't gotten back with her. This PCP thought it was botfly infection. One aerospace stress engineer referred her to [facility] but she has not been seen there yet and I am unsure why. Her most recent aerospace stress engineer, Dr Yi wanted her to see infectious [...] 2-3 years and derm sending her to [place]. Worms and flies in her. Weight gain [...] her homeShe is scheduled to see an erecting engineer in FebruaryContext notable for stress but no ill contact at home/school, injury or travel. Telehealth Visit with luis e vazquez via video and audio utilizing [employer] program Restart OCP Patient would li ke [...] to dermatology. Most recently saw dermatology at [facility] on 08/29/20Reviewed office note. Punch biopsy [...] urineUrine culture pending Related to UTI symptoms Kenedy dietTake anti- emetic, Ondansetron, before eating Related [...] 2D ECHO, EVENT M ONITOR, RUQ U/S, [facility] REFERRAL FOR SECOND OPINION ON PSYCH, DERM REFERRAL-DR STEVENS OR [facility] Related to Recurrent syncope Counseled on dietary changes need psych notes Related to Psyc hosis, unspecified psychosis type MA: REFER TO DR EASON AR ID, NEED ALL RECORDS FROM [facility] AND FROM PSYCH DR MATA Related to Alopecia Disease process Blood pressure is no rmalMonitor blood pressure at home and call office if blood pressure >140/90 on 2 or more occasions Work on heart healthy diet - limit salt/sodium, limit saturated (animal) fats including dairy such as cheese, avoid fried foods Related to Hypertension, unspecified type No signs of infection Related to Urinary frequency Follow up with GI doctor Related to Abnormal bowel movement as above Related to Pain in joints [...] weeks Related to Essential hypertension Restart generic Wilmont pro (Escitalopram) 20 mg dailyWork on deep [...]
== END 2025-04-22 15:52 | disposition left against medical advice (07) ==
LOC: ANHED 15:56
DX: R07.89 Other chest pain (principal)
CPT/HCPCS: 99199

== ENCOUNTER 2025-08-19 13:31 | Outpatient (CLI) | payer MEDICARE, SELFPAY ==
--- NOTE | ~2025-08-19 | US_ITS ---
ULTRASOUND ABDOMEN LIMITED (RIGHT UPPER QUADRANT) Clinical History: R74.01 - Elevation of levels of liver transaminase levels Comparison: CT abdomen and pelvis 11/01/2023 Technique: Right upper quadrant sonography Findings: Liver: Enlarged. Echogenic. No intrahepatic biliary ductal dilatation. Normal hepatopedal flow main portal vein. Common Duct: 7 mm. Gallbladder: No stones. No wall thickening. No pericholecystic fluid. Pancreas: Obscured by gas. IMPRESSION: 1. No acute findings. 2. Hepatomegaly, with steatosis and/or diffuse hepatocellular disease. Reviewed, dictated and finalized at location R.
== END 2025-08-19 13:32 | disposition home or self-care (01) ==
LOC: GOSHIMG 13:32
PROVIDERS: PCP Nurse Practitioner Family; Visit Provider Nurse Practitioner Family
DX: R74.01 Elevation of levels of liver transaminase levels (principal)
CPT/HCPCS: 76705

== ENCOUNTER 2025-08-19 13:46 | Outpatient (CLI) | payer MEDICARE, SELFPAY ==
--- OUTSIDE RECORDS SUMMARY | 2025-08-19 14:38 | XMS_ITS | Clinical Summary ---
Author Organization [address] Address [address] [place] [address] Care Team Providers Care Locker Attendant Name Role Phone Claudia Graham DO Primary Care Provider [phone] Allergies Active Allergy Reactions Criticality Noted Date Comments House Dust Sneezing Low 03/07/2023 Mold Extracts Unknown 03/07/2023 Medications lisinopriL (PRINIVIL,ZESTRIL) 10 mg tabletIndications: hypertension Take 1 tablet (10 mg total) by mouth machine shop specialist before breakfast 01/15/20 18 Active Lo Loestrin Fe 1 mg-10 mcg (24)/10 mcg (2) tabletIndications: Contraception Take 1 tablet by mouth machine shop specialist before breakfast 10/31/20 20 Active omeprazole (PriLOSEC) 40 mg capsuleIndications :Treatment of Non-Bleeding Gastric Disorder Take 1 capsule (40 mg total) by mouth machine shop specialist before breakfast 08/21/20 21 Active metroNIDAZOLE (METROCREAM) [...] (02/23/2023): Added automatically from request for surgery [id number] Blurred vision, bilateral 09/07/2022 Bilateral retinal lattice [...] major depressive disorder, without psychotic features 01/12/2018 Encounters Date Type Department Care Team Description 06/15/2025 9:44 AM CDT - 06/15/2025 10:25 AM CDT Emergency [facility] Emergency Department [address] [place] [address] Cellulitis, unspecified cellulitis site (Primary Dx); Delusions of parasitosis (HCC) Discharge Disposition: Discharge to home or self care from Last 3 Months Surgical History Surgery Date Site/Laterality Comments BREAST [...] making you feel afraid or unsafe? Denies 06/15/2025 Comments No Sex and Gender Information Value Date Recorded Sex Assigned at Not on file Legal Sex Female 8:31 AM CDT Gender Identity Not on file Sexual Orientation Not on file Obstetrics History Last Filed Vital Signs Vital Sign Reading Time Taken Comments Blood Pressure 152/97 06/15/2025 7:14 AM CDT Pulse 69 06/15/2025 7:14 AM CDT Temperature 36.6 C (97.9 F) 06/15/2025 7:14 AM CDT Respiratory Rate 18 06/15/2025 7:14 AM CDT Oxygen Saturation 100% 06/15/2025 7:14 AM CDT Inhaled Oxygen Concentration - - Weight 60.5 kg (133 lb 6.1 oz) 06/15/2025 7:14 A M CDT Height 165.1 cm (5' 5) 06/15/2025 7:14 AM CDT Body Mass Index 22.2 06/15/2025 7:14 AM CDT Plan of Treatment Health Maintenance Due Date Last Done Comments Colon Cancer Screening-Colonoscopy 1974 Depression Screening 1974 DTaP/Tdap/Td Vaccine (1 - Tdap) 1985 Hepatitis B Screening 1992 Regular Well Visit/Exam 18-64 1992 Pneumococcal vaccine <65 (1 of 2 - PCV) 1993 Breast Cancer Screening-Mammogram 09/15/2023 022 Zoster Vaccine (1 of 2) 2024 Covid-19 Vaccine (3 - season) 07/15/202512/2020, 03/18/2021 Influenza Vaccine (#1) 2025 Hepatitis C Screening Completed 12/18/2020 Procedures Procedure Name Priority Date/Time Associated Diagnosis Comments SCREENING MAMMOGRAM BILATERAL W ALFONZO W IMPLANTS Schedule Routine, Read Routine (OP Routine) 09/15/2022 4:26 PM CDT Screening mammogram, encounter for HEPATITIS C ANTIBODY Routine 12/18/2020 5:21 PM CARDER BLANKETS Pruritus from Last 3 Months or Most [...] * Hepatitis C antibody (12/18/2020 5:21 PM CARDER BLANKETS) Hep C Ab NON-REACTI VE NON-REACT JUAN JOSE [facility] SIGNAL TO CUT-OFF 0.01 <1.00 [facility] Comment: HCV antibody was non-reactive. There is no laboratory evidence of HCV infection. In most cases, no further action is required. However, if recent HCV exposure is suspected, a test for HCV RNA (test code 83259) is suggested. For additional information please refer to http://education.[employer]/faq/HMR70s1 (This link is being provided for informational/ educational purposes only.) Blood specimen (specimen) 12/18/2020 5:21 PM CARDER BLANKETS 12/18/2020 5:22 PM CARDER BLANKETS us Isabel Medina MD LAB MICROBIOLOGY - GENERAL ORDERABLES Final Result [facility] [address] [place] [address] from Last 3 Months or Most Recently Relevant to Health Maintenance Insurance [facility] [place] [address] [address] MEDICARE MEDICARE MEDICAID [place] SPENDDOWN Care Teams Locker Attendant Relationship Specialty Start Date End Date Claudia Graham DO [address] [facility] [address] [place] [address] PCP - General Family Medicine 03/02/24
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
--- OUTSIDE RECORDS SUMMARY | 2025-08-19 14:38 | XMS_ITS | Clinical Summary ---
Author Organization [facility] Address [address] [place] [id number] Care Team Providers Care 3D Technologist Name Role Phone None, Provider MD Primary [...] 2:13 PM CDT Height 165.1 cm (5' 5) 09/05/2024 2:13 PM CDT Body Mass Index 21.5 09/05/2024 2:13 PM CDT Plan of Treatment Health Maintenance Due Date Last Done Comments Colorectal Cancer Screening Colonoscopy (10 Years) 1974 Annual Physical 1977 Hepatitis C 1992 DTaP, Tdap and Td Vaccines ( 1 - Tdap) 1993 Hepatitis B Vaccines (1 of 3 - 19+ 3-dose series) 1993 Pneumococcal Vaccine: 50+ Years (1 of 1 - PCV) 2024 Zoster Vaccines (1 of 2) 2024 Mammogram Screening 11/29/2024 11/29/2022, 09/15/2022 COVID-19 Vaccine (1 - 2023-2 5 season) 2025 11/14/2020 Influenza Adult (#1) 2025 Meningococcal B Vaccine Aged Out No l onger eligible based on patient's age to complete this topic Meningococcal Vaccine Aged Out No bryon sarah eligible based on patient's age to complete this topic RSV Immunizations Under 20 Months Aged Out No longer eligible b ased on patient's age to complete this topic Insurance MEDICARE Care Teams 3D Technologist Relationship Specialty Start Date End Date None, Provider, PCP - General UNKNOWN PHYSICIAN SPECIALTY 09/05/24
[2025-08-19 18:43] LABS: Iron 171 ug/dL (37-170)
[2025-08-19 18:52] LABS: Magnesium 1.8 mg/dL (1.6-2.3)
[2025-08-19 18:53] LABS: Percent Iron Saturation 62 % (20-50)
[2025-08-19 19:15] LABS: Hepatitis B Surface Antigen Negative (Negative)
[2025-08-19 19:20] LABS: Hepatitis B Core IgM Result Negative (Negative)
[2025-08-19 19:25] LABS: Ferritin 136.00 ng/mL (11.1-264)
[2025-08-19 19:33] LABS: Hepatitis B Surface Anti Res Negative
== END 2025-08-19 13:47 | disposition home or self-care (01) ==
LOC: ANHGOSHLAB 13:48
PROVIDERS: PCP Nurse Practitioner Family; Visit Provider Nurse Practitioner Family
DX: R74.01 Elevation of levels of liver transaminase levels (principal)
CPT/HCPCS: 36415; 82728; 83540; 83550; 83735; 86705; 86706; 86803; 87340